=== PATIENT | male | born 1960 | race Caucasian/White ===

== ENCOUNTER 2017-01-18 18:24 | Inpatient (IN) | payer OTHER, MEDICARE ==
[~2017-01-18] VITALS: Ht 188 cm; Wt 146.0 kg
[~2017-01-18 18:24] MED LIST: ALBU6.7H INH; ATOR40TA16 PO; CARV25TA PO; FURO40TA PO; HYDR-3580 PO; INSU1INJ14 SQ; METF500T4 PO; PLAV75TA29 PO; PROT40TA PO; SACU1TAB PO; SIMV20TA PO; SPIR25TA PO
[2017-01-18 18:40] VITALS: BP 124/77; PULSE 87; RESP 18; TEMP 97.8; O2SAT 96
--- NOTE | 2017-01-18 20:55 | PD ---
HPI Chief Complaint: Laceration/Skin Injury Time Seen by Provider: 20:43 Travel History International Travel<30 days: No Contact w/Intl Traveler<30days: No Traveled to known affect area: No History of Present Illness HPI 56yo M with PMH of afib on eliquis, DM, neuropathy presents to the ED with left toe laceration. Pt states he was in his yard yesterday at 10:30pm and he tripped over something and cut his left fourth toe. States it took a while for bleeding to stop but it did and he was not feeling too much pain so did not come in. Pt looked at it today and it looks bad so decided to come in. Did not take anything for pain. Cant remember last tetanus. Denies any dizziness, fever, chest pain, sob, n/v, abdominal pain, focal weakness or numbness. PFSH Past Medical History Hx Anticoagulant Therapy: No Arthritis: No Asthma: No Autoimmune Disease: No Blood Disorders: No Anxiety: Yes Depression: Yes Heart Rhythm Problems: No Cancer: Yes (CHEEK) Cardiovascular Problems: Yes (LA X 4, STENT, PACEMAKER, DEFIB ) High Cholesterol: Yes Chemotherapy: No Chest Pain: Yes Congestive Heart Failure: Yes COPD: No Cerebrovascular Accident: No Coronary Artery Disease: Yes Diabetes: Yes Patient Takes Glucophage: No Diminished Hearing: No Endocrine: Yes Gastrointestinal Disorders: No GERD: No Glaucoma: No Genitourinary: No Headaches: No Hepatitis: No Hiatal Hernia: No Hypertension: Yes Immune Disorder: No Implanted Vascular Access Dvce: No Kidney Stones: No Musculoskeletal: No Neurologic: No Psychiatric: No Reproductive: No Respiratory: No Immunizations Current: Yes Myocardial Infarction: Yes (X 01 July 2005) Radiation Therapy: No Renal Failure: No Seizures: No Sickle Cell Disease: No Sleep Apnea: No Thyroid Disease: No Ulcer: No Tetanus Vaccination: > 5 Years Influenza Vaccination: No Past Surgical History Abdominal Surgery: No AICD: No Body Medical Devices: AICD Cardiac Surgery: Yes (AICD) Coronary Stent: Yes (X4) Ear Surgery: No Endocrine Surgery: No Eye Surgery: No Genitourinary Surgery: No Gynecologic Surgery: No Oral Surgery: Yes (TONSILLECTOMY) Pacemaker: No Thoracic Surgery: Yes (STENTS X3 in 2005) Tonsillectomy: Yes Social History Alcohol Use: Yes (OCCASIONALLY) Tobacco Use: No Substance Use: No Allergies-Medications (Allergen,Severity, Reaction): Coded Allergies: penicillin G (Unverified Allergy, Severe, unknown childhood rxn, 01/18/17) Reported Meds & Prescriptions Reported Meds & Active Scripts Active Reported Carvedilol 25 Mg Tab 25 Mg PO BID Furosemide 40 Mg Tab 40 Mg PO BID Spironolactone 25 Mg Tab 25 Mg PO TID Tresiba Flextouch Pen Inj (Insulin Degludec Inj) 300 unit/3 ML Pen 30 Units SQ DAILY Entresto (Sacubitril-Valsartan) 24-26 Mg Tab 1 Tab PO BID Plavix (Clopidogrel Bisulfate) 75 Mg Tab 75 Mg PO DAILY Proventil Hfa 6.7 GM Inh (Albuterol Sulfate) 90 Mcg/Act Aer 2 Puff INH BID PRN Simvastatin 20 Mg Tab 20 Mg PO HS Metformin ER (Metformin HCl) 500 Mg Ashlyn 500 Mg PO BID With evening meal Review of Systems Except as stated in HPI: all other systems reviewed are Neg Physical Exam Narrative GENERAL: 56yo M not in distress. SKIN: Focused skin assessment warm/dry. HEAD: Atraumatic. Normocephalic. EYES: Pupils equal and round. No scleral icterus. No injection or drainage. CARDIOVASCULAR: Regular rate and rhythm. No murmur appreciated. RESPIRATORY: No accessory muscle use. Clear to auscultation. Breath sounds equal bilaterally. GASTROINTESTINAL: Abdomen soft, non-tender, nondistended. No rebound tenderness or guarding. MUSCULOSKELETAL: Left foot: +3cm laceration on volar aspect of left fourth digit. Can visualize the bone and interphalangeal joint easily dislocates and relocates. DP 2+. Sensation intact. No active bleeding. NEUROLOGICAL: Awake and alert. No obvious cranial nerve deficits. Motor grossly within normal limits. Normal speech. PSYCHIATRIC: Appropriate mood and affect; insight and judgment normal. Data Data Last Documented VS Vital Signs Date Time Temp Pulse Resp B/P (MAP) Pulse Ox O2 Delivery O2 Flow Rate FiO2 01/18/17 18:40 97.8 87 18 124/77 (93) 96 Room Air Orders Orders Foot, Limited (2vws) (01/18/17 ) Tetanus/Diphtheria Tox Adult (Tetanus/Di (01/18/17 21:00) Acetaminophen (Tylenol) (01/18/17 21:00) Lidocaine 1% Inj (50 Ml) (Xylocaine 1% I (01/18/17 21:45) Complete Blood Count With Diff (01/18/17 23:29) Basic Metabolic Panel (Bmp) (01/18/17 23:29) Prothrombin Time / Inr (Pt) (01/18/17 23:29) Act Partial Throm Time (Ptt) (01/18/17 23:29) Vancomycin Inj (Vancomycin Inj) (01/18/17 23:30) Type And Screen (01/18/17 23:34) Consult Podiatry (01/19/17 ) Ondansetron Inj (Zofran Inj) (01/19/17 01:00) Morphine Inj (Morphine Inj) (01/19/17 01:00) Gentamicin Inj (Gentamicin Inj) (01/19/17 01:00) Admit Order (Ed Use Only) (01/19/17 01:32) Labs Laboratory Tests Test 01/18/17 23:40 White Blood Count 9.5 TH/MM3 Red Blood Count 4.20 MIL/MM3 Hemoglobin 13.7 GM/DL Hematocrit 40.3 % Mean Corpuscular Volume 95.9 FL Mean Corpuscular Hemoglobin 32.6 PG Mean Corpuscular Hemoglobin Concent 34.0 % Red Cell Distribution Width 14.2 % Platelet Count 194 TH/MM3 Mean Platelet Volume 9.1 FL Neutrophils (%) (Auto) 50.4 % Lymphocytes (%) (Auto) 35.6 % Monocytes (%) (Auto) 10.3 % Eosinophils (%) (Auto) 3.2 % Basophils (%) (Auto) 0.5 % Neutrophils # (Auto) 4.8 TH/MM3 Lymphocytes # (Auto) 3.4 TH/MM3 Monocytes # (Auto) 1.0 TH/MM3 Eosinophils # (Auto) 0.3 TH/MM3 Basophils # (Auto) 0.0 TH/MM3 CBC Comment DIFF FINAL Differential Comment Prothrombin Time 11.2 SEC Prothromb Time International Ratio 1.0 RATIO Activated Partial Thromboplast Time 26.6 SEC Blood Urea Nitrogen 30 MG/DL Creatinine 1.28 MG/DL Random Glucose 144 MG/DL Calcium Level 8.9 MG/DL Sodium Level 137 MEQ/L Potassium Level 4.0 MEQ/L Chloride Level 102 MEQ/L Carbon Dioxide Level 28.0 MEQ/L Anion Gap 7 MEQ/L Estimat Glomerular Filtration Rate 58 ML/MIN MDM Medical Decision Making Medical Screen Exam Complete: Yes Emergency Medical Condition: Yes Differential Diagnosis Open fracture vs. dislocation vs. foreign body Narrative Course 56yo M with left fourth toe laceration s/p trip and fall on tree yesterday at 10pm. No other injuries. Upon exploration of the wound, it was found that bone was exposed and the joint easily dislocates and relocates. Discussed with residential green building designer Dr. Abrams and she states to keep pt NPO after breakfast today and she plans to take him to the OR today probably around 5pm. Labs reviewed, no leukocytosis. BMP is not back yet and sign out to PA to follow up and admit to medicine. Pt given vancomycin and gentamicin. Xray of left foot showed no acute findings. No radiopaque foreign body. Left foot wound irrigated well and wet to dry dressing placed. Diagnosis Primary Impression: Open fracture of fourth metatarsal bone of left foot Admitting Information Admitting Physician Requests: Admit Colette Floyd DO Jan 18, 2017 20:55
[2017-01-18] MEDS ORDERED: TETANUS/DIPHTHERIA TOXOID ADULT 0.5 ML VIAL IM ONE (21:00)
[2017-01-18] MEDS ORDERED: ACETAMINOPHEN 500 MG CPLT PO ONE (21:00)
--- NOTE | 2017-01-18 21:18 | RADRPT ---
EXAM DATE/TIME: 01/18/2017 20:46 [facility] COMPARISON: No previous studies available for comparison. INDICATIONS : Left foot pain. Patient states he cut his foot between his first and second digit. MEDICAL HISTORY : None. SURGICAL HISTORY : None. ENCOUNTER: Initial ACUITY: 2 days PAIN SCORE: 8/10 LOCATION: Left foot. FINDINGS: Two view examination of the left foot demonstrates no soft tissue swelling, dislocation, or fracture. The calcaneus is intact. Bony mineralization is normal. CONCLUSION: 1. No acute findings. Mild degenerative change of the left foot. No radiopaque foreign body identifie d. Polo Morse MD on January 18, 2017 at 21:16 Board Certified Radiologist. This report was verified electronically.
[2017-01-18] MEDS ORDERED: LIDOCAINE HCL 1% 50 ML VIAL INFIL ONE (21:45)
[2017-01-18] MEDS ORDERED: VANCOMYCIN INJ 2,100 MG in SODIUM CHLORID 0.9% 500 ML INJ 500 ML IV ONE (23:30)
--- NOTE | 2017-01-18 23:39 | PD ---
Physical Exam Date Seen by Provider: Jan 18, 2017 Time Seen by Provider: 23:38 Narrative Right foot: There is a laceration to the volar proximal aspect of the fourth toe. The wound measures approximately 1.7 cm. The wound is contaminated with dirt debris. On examination of the toe it appears that the PIP joint is open. Patient hasn't tach gross sensation. (Polo Crook) Narrative Correction: It is the left foot that was examined. (Colette Floyd DO) Data Data Last Documented VS Vital Signs Date Time Temp Pulse Resp B/P (MAP) Pulse Ox O2 Delivery O2 Flow Rate FiO2 01/18/17 18:40 97.8 87 18 124/77 (93) 96 Room Air (Colette Floyd DO) Orders Orders Foot, Limited (2vws) (01/18/17 ) Tetanus/Diphtheria Tox Adult (Tetanus/Di (01/18/17 21:00) Acetaminophen (Tylenol) (01/18/17 21:00) Lidocaine 1% Inj (50 Ml) (Xylocaine 1% I (01/18/17 21:45) Complete Blood Count With Diff (01/18/17 23:29) Basic Metabolic Panel (Bmp) (01/18/17 23:29) Prothrombin Time / Inr (Pt) (01/18/17 23:29) Act Partial Throm Time (Ptt) (01/18/17 23:29) Vancomycin Inj (Vancomycin Inj) (01/18/17 23:30) Type And Screen (01/18/17 23:34) Consult Podiatry (01/19/17 ) Ondansetron Inj (Zofran Inj) (01/19/17 01:00) Morphine Inj (Morphine Inj) (01/19/17 01:00) Gentamicin Inj (Gentamicin Inj) (01/19/17 01:00) Admit Order (Ed Use Only) (01/19/17 01:32) (Colette Floyd DO) Labs Laboratory Tests Test 01/18/17 23:40 White Blood Count 9.5 TH/MM3 Red Blood Count 4.20 MIL/MM3 Hemoglobin 13.7 GM/DL Hematocrit 40.3 % Mean Corpuscular Volume 95.9 FL Mean Corpuscular Hemoglobin 32.6 PG Mean Corpuscular Hemoglobin Concent 34.0 % Red Cell Distribution Width 14.2 % Platelet Count 194 TH/MM3 Mean Platelet Volume 9.1 FL Neutrophils (%) (Auto) 50.4 % Lymphocytes (%) (Auto) 35.6 % Monocytes (%) (Auto) 10.3 % Eosinophils (%) (Auto) 3.2 % Basophils (%) (Auto) 0.5 % Neutrophils # (Auto) 4.8 TH/MM3 Lymphocytes # (Auto) 3.4 TH/MM3 Monocytes # (Auto) 1.0 TH/MM3 Eosinophils # (Auto) 0.3 TH/MM3 Basophils # (Auto) 0.0 TH/MM3 CBC Comment DIFF FINAL Differential Comment Prothrombin Time 11.2 SEC Prothromb Time International Ratio 1.0 RATIO Activated Partial Thromboplast Time 26.6 SEC Blood Urea Nitrogen 30 MG/DL Creatinine 1.28 MG/DL Random Glucose 144 MG/DL Calcium Level 8.9 MG/DL Sodium Level 137 MEQ/L Potassium Level 4.0 MEQ/L Chloride Level 102 MEQ/L Carbon Dioxide Level 28.0 MEQ/L Anion Gap 7 MEQ/L Estimat Glomerular Filtration Rate 58 ML/MIN (Colette Floyd DO) MDM Medical Record Reviewed: Yes Supervised Visit with JUDAH: Yes Differential Diagnosis MDM: High Differential diagnoses: Fracture, sprain, strain, dislocation, contusion, neurovascular injury, open joint laceration, open fracture Narrative Course The patient's wound has been copiously irrigated. A wet-to-dry dressing has been applied. Patient is aware that he ate appears to have an avulsion fracture with an open PIP joint of the right fourth toe. Podiatry has been consulted and is requesting admission and will evaluate the patient tomorrow for possible or. (Polo Crook) Procedures Procedure Narrative Right fourth toe wound care: The right foot is prepped and draped in usual sterile fashion using Betadine. The patient's toe was anesthetized with 1% lidocaine block. The wound appears to be contaminated with dirt debris. The wound is copiously cleansed and irrigated. Exploration of the wound reveals a open dislocation of the PIP joint of the toe. This is reducible but easily dislocates. The wound is reexamined. The dirt debris appears to be cleared away. The wound is irrigated copiously and second time. The dislocation is reduced once again and a wet-to-dry dressing is applied. (Polo Crook) Condition: Stable Polo Crook Jan 18, 2017 23:39 Colette Floyd DO Jan 19, 2017 16:37
[2017-01-19] VITALS (7 sets, daily range): BP systolic 111–142; BP diastolic 60–82; PULSE 69–94; RESP 14–19; TEMP 97–100; O2SAT 96–98
[2017-01-19 00:24] LABS: AUTOMATED NEUTROPHIL # 4.8 TH/MM3 (1.8-7.7); BASOPHIL % 0.5 % (0.0-2.0); EOSINOPHIL # 0.3 TH/MM3 (0-0.4); EOSINOPHIL % 3.2 % (0.0-4.0); HEMATOCRIT 40.3 % (39.0-51.0); HEMO FLAGS DIFF FINAL; LYMPH % 35.6 % (9.0-44.0); LYMPHOCYTE # 3.4 TH/MM3 (1.0-4.8); MEAN CELL VOLUME 95.9 FL (80.0-100.0); MEAN CORPUSCULAR HEMOGLOBIN 32.6 PG (27.0-34.0); MONO % 10.3 % (0.0-8.0); NEUT % 50.4 % (16.0-70.0); PLATELET COUNT 194 TH/MM3 (150-450); RED CELL DISTRIBUTION WIDTH 14.2 % (11.6-17.2); WHITE BLOOD COUNT 9.5 TH/MM3 (4.0-11.0)
[2017-01-19 00:37] LABS: APTT (PATIENT) 26.6 SEC (24.3-30.1); PROTHROMBIN TIME - PATIENT 11.2 SEC (9.8-11.6)
[2017-01-19] MEDS ORDERED: MORPHINE SULFATE 8 MG/ML INJ IV PUSH ONE (01:00)
[2017-01-19] MEDS ORDERED: GENTAMICIN SULFATE 80 MG/2 ML VIAL IM ONE (01:00)
[2017-01-19] MEDS ORDERED: ONDANSETRON HCL 4 MG/2 ML VIAL IV PUSH ONE ×2 (01:00→12:00)
[2017-01-19] MEDS ORDERED: GENTAMICIN SULFATE 80 MG/2 ML VIAL IV ONE (01:15)
[2017-01-19] MEDS ORDERED: NALOXONE HCL 0.4 MG/ML AMP IV PRN (01:45)
[2017-01-19] MEDS ORDERED: SODIUM CHLORIDE 0.9% FLUSH 10 ML FLUSH IV FLUSH PRN (01:45)
[2017-01-19] MEDS ORDERED: Vancomycin Consult Pharmacy 1 EA OTHER SCH (01:45)
[2017-01-19] MEDS ORDERED: Gentamicin Consult Pharmacy 1 EA OTHER SCH (01:45)
[2017-01-19] MEDS ORDERED: GENTAMICIN INJ 100 MG in SODIUM CHLORIDE 0.9% INJ 100 ML IV ONE (02:00)
[2017-01-19] MEDS ORDERED: LACTATED RINGER'S 1000 ML IV PRN ×2 (04:15→20:30)
[2017-01-19] MEDS ORDERED: SODIUM CHLORID 0.9% 500 ML IV PRN ×2 (04:15→20:30)
[2017-01-19] MEDS ORDERED: POVIDONE IODINE 5% (ANTISEPSIS KIT) 4 APPLICATIONS EACH NARE PRN ×2 (04:15→20:30)
[2017-01-19] MEDS ORDERED: CHLORHEXIDINE GLUCONATE 2 % 1 PACK (2 CLOTHS) TOPICAL PRN ×2 (04:15→20:30)
[2017-01-19] MEDS ORDERED: INSULIN HUMAN REGULAR 1,000 UNITS/10 ML VIAL SQ PRN ×2 (04:15→20:30)
[2017-01-19] MEDS ORDERED: METOPROLOL TARTRATE 25 MG TAB PO PRN (04:15)
[2017-01-19] MEDS ORDERED: DEXTROSE 50% IN WATER 50 ML VIAL(D50) IV PRN (08:45)
[2017-01-19] MEDS ORDERED: GLUCAGON 1 MG/ML VIAL OTHER PRN (08:45)
[2017-01-19] MEDS: FUROSEMIDE 40 MG TAB PO SCH ×3 (09:00→20:25)
[2017-01-19] MEDS: SPIRONOLACTONE 25 MG TAB PO SCH ×5 (09:00→20:25)
[2017-01-19] MEDS ORDERED: ACETAMINOPHEN/HYDROcodone 325 MG/5 MG TAB PO PRN (09:00)
--- NOTE | 2017-01-19 09:02 | RADRPT ---
EXAM DATE/TIME: 01/19/2017 08:40 [facility] COMPARISON: FOOT LEFT LIMITED (2VWS), January 18, 2017, 20:46. INDICATIONS : Left ankle pain, fell MEDICAL HISTORY : None. SURGICAL HISTORY : None. ENCOUNTER: Initial ACUITY: 2 days PAIN SCORE: 8/10 LOCATION: Left Ankle FINDINGS: The examination demonstrates extensive soft tissue edema surrounding ankle. The ankle mortise is inta ct. No acute fracture or retained foreign body is seen. CONCLUSION: Extensive soft tissue swelling. No acute fracture identified. Maximino Loving MD on January 19, 2017 at 9:00 Board Certified Radiologist. This report was verified electronically.
--- NOTE | 2017-01-19 09:16 | HHI.HP ---
HPI Service [facility] Primary Care Physician Wendi Sarabia DO Admission Diagnosis right fourth toe open fx joint laceration Diagnoses: Chief Complaint: Left 4th toe laceration Travel History International Travel<30 Days: No Contact w/Intl Traveler <30 Da: No Traveled to Known Affected Are: No History of Present Illness 56 y/o male with a history of afib, dm, neuropathy, CAD, [place], HLD, and CHF (Last echo 04/2016 shows EF of 35%), AICD presented to the ED with complaints of a left 4th toe laceration. Patient states he tripped over an oak tree root on the side of his house 2 days ago at night. He is not sure what he stepped on because it was dark, but he cleaned it and the next day he had increased pain and redness to the area. He states the pain is a throbbing 10/10 to the left foot, with associated left ankle pain. He was given pain medication in the ED which seemed to help, but has had none since and is requesting some. He denies any chest pain, sob, fever, chills, nausea, vomiting or headaches. He states he follows with Dr. Vincent for cardiology, and was always told to get clearance for any surgery. His pacemaker did fire 10 days ago and he was evaluated by his floor worker transfer bay and PCP. Review of Systems Except as stated in HPI: all other systems reviewed are Neg Past Family Social History Past Medical History AFIB DM Neuropathy [place] with stent placement HLD CHF EF 04/2016 shows EF 35% CAD Past Surgical History Tonsillectomy Cardiac stents x 3 Pacemaker/AICD Reported Medications Reported Meds & Active Scripts Active Reported Carvedilol 25 Mg Tab 25 Mg PO BID Furosemide 40 Mg Tab 40 Mg PO BID Spironolactone 25 Mg Tab 25 Mg PO TID Tresiba Flextouch Pen Inj (Insulin Degludec Inj) 300 unit/3 ML Pen 30 Units SQ DAILY Entresto (Sacubitril-Valsartan) 24-26 Mg Tab 1 Tab PO BID Plavix (Clopidogrel Bisulfate) 75 Mg Tab 75 Mg PO DAILY Proventil Hfa 6.7 GM Inh (Albuterol Sulfate) 90 Mcg/Act Aer 2 Puff INH BID PRN Simvastatin 20 Mg Tab 20 Mg PO HS Metformin ER (Metformin HCl) 500 Mg Ashlyn 500 Mg PO BID With evening meal Allergies: Coded Allergies: penicillin G (Unverified Allergy, Severe, unknown childhood rxn, 01/18/17) Active Ordered Medications Current Medications Medications (Trade) Dose Ordered Sig/Edwina Route Start Time Stop Time Status Last Admin (NS Flush) 2 ml UNSCH PRN IV FLUSH 01/19/17 01:45 (NS Flush) 2 ml BID IV FLUSH 01/19/17 09:00 (Narcan Inj) 0.4 mg UNSCH PRN IV 01/19/17 01:45 Pharmacy Profile Note 0 ml @ 0 mls/hr UNSCH OTHER 01/19/17 01:45 Pharmacy Profile Note 0 ml @ 0 mls/hr UNSCH OTHER 01/19/17 01:45 Lactated Ringer's 1,000 ml @ 30 mls/hr Q24H PRN IV 01/19/17 04:15 01/22/17 04:14 Sodium Chloride 500 ml @ 30 mls/hr [id number] PRN IV 01/19/17 04:15 01/22/17 04:14 (Lopressor) 25 mg INVENTORY AUDIT CLERK PRN PO 01/19/17 04:15 01/22/17 04:14 (Betadine 5% Antisepsis Kit) 1 applic INVENTORY AUDIT CLERK PRN EACH NARE 01/19/17 04:15 01/22/17 04:14 (Chlorhexidine 2% Cloth) 3 pack INVENTORY AUDIT CLERK PRN TOPICAL 01/19/17 04:15 01/22/17 04:14 (NovoLIN R INJ) See Protocol Table ... INVENTORY AUDIT CLERK PRN SQ 01/19/17 04:15 01/22/17 04:14 (Proair Hfa Inh) 2 puff BID PRN INH 01/19/17 08:45 UNV (Coreg) 25 mg BID PO 01/19/17 09:00 UNV (Plavix) 75 mg DAILY PO 01/19/17 09:00 UNV (Lasix) 40 mg BID PO 01/19/17 09:00 UNV (Entresto 24-26 Mg) 1 tab BID PO 01/19/17 09:00 UNV (Aldactone) 25 mg TID PO 01/19/17 09:00 UNV Non-Formulary Medication 20 mg HS PO 01/19/17 21:00 UNV (D50w (Vial) Inj) 50 ml UNSCH PRN IV 01/19/17 08:45 UNV (Glucagon Inj) 1 mg UNSCH PRN OTHER 01/19/17 08:45 UNV Gentamicin Sulfate 520 mg/ Sodium Chloride 113 ml @ 100 mls/hr Q24H IV 01/19/17 12:00 Family History Dad: Alive at 85, [place] Mom: Alive and has Alzheimer's Social History Tobacco use: Quit a few months ago Alcohol use: Occasionally Illicit drug use: Denies Physical Exam Vital Signs Vital Signs Date Time Temp Pulse Resp B/P (MAP) Pulse Ox O2 Delivery O2 Flow Rate FiO2 01/19/17 04:00 97.1 69 18 117/73 (88) 97 01/19/17 03:35 01/19/17 03:12 98.1 71 14 115/61 (79) 96 Room Air 01/18/17 18:40 97.8 87 18 124/77 (93) 96 Room Air Physical Exam GENERAL: This is a well-nourished, well-developed patient,who is having mild pain. SKIN: Left 4th toe laceration, with erythema, wrapped in gauze, slight left ankle ecchymosis HEAD: Atraumatic. Normocephalic. EYES: Pupils equal round and reactive. ENT: Nose without bleeding, purulent drainage or septal hematoma. Airway patent. NECK: Trachea midline. No JVD or lymphadenopathy. CARDIOVASCULAR: Regular rate and rhythm without murmurs, gallops, or rubs. RESPIRATORY: Clear to auscultation. Breath sounds equal bilaterally. No wheezes , rales, or rhonchi. GASTROINTESTINAL: Abdomen soft, non-tender, nondistended. No guarding. MUSCULOSKELETAL: Left foot tenderness. No calf tenderness. Mild left ankle swelling NEUROLOGICAL: Awake and alert. Motor and sensory grossly within normal limits. Normal speech. Laboratory Laboratory Tests Test 01/18/17 23:40 White Blood Count 9.5 Red Blood Count 4.20 Hemoglobin 13.7 Hematocrit 40.3 Mean Corpuscular Volume 95.9 Mean Corpuscular Hemoglobin 32.6 Mean Corpuscular Hemoglobin Concent 34.0 Red Cell Distribution Width 14.2 Platelet Count 194 Mean Platelet Volume 9.1 Neutrophils (%) (Auto) 50.4 Lymphocytes (%) (Auto) 35.6 Monocytes (%) (Auto) 10.3 Eosinophils (%) (Auto) 3.2 Basophils (%) (Auto) 0.5 Neutrophils # (Auto) 4.8 Lymphocytes # (Auto) 3.4 Monocytes # (Auto) 1.0 Eosinophils # (Auto) 0.3 Basophils # (Auto) 0.0 CBC Comment DIFF FINAL Differential Comment Prothrombin Time 11.2 Prothromb Time International Ratio 1.0 Activated Partial Thromboplast Time 26.6 Blood Urea Nitrogen 30 Creatinine 1.28 Random Glucose 144 Calcium Level 8.9 Sodium Level 137 Potassium Level 4.0 Chloride Level 102 Carbon Dioxide Level 28.0 Anion Gap 7 Estimat Glomerular Filtration Rate 58 Result Diagram: 01/18/17 2340 01/18/17 2340 Imaging Last Impressions Foot X-Ray 01/18/17 0000 Signed Impressions: Service Date/Time: Wednesday, January 18, 2017 20:46 - CONCLUSION: 1. No acute findings. Mild degenerative change of the left foot. No radiopaque foreign body identified. Polo Morse MD Caprini VTE Risk Assessment Caprini VTE Risk Assessment: Mod/High Risk (score >= 2) VTE Pharm Contraindication: surgery pending Caprini Risk Assessment Model Point Value = 1 Point Value = 2 Point Value = 3 Point Value = 5 Age 41-60 Minor surgery BMI > 25 kg/m2 Swollen legs Varicose veins or History of unexplained or recurrent spontaneous Oral contraceptives or hormone replacement Sepsis (< 1 month) Serious lung disease, including pneumonia (< 1 month) Abnormal pulmonary function Acute myocardial infarction Congestive heart failure (< 1 month) History of inflammatory bowel disease Medical patient at bed rest Age 61-74 Arthroscopic surgery Major open surgery (> 45 min) Laparoscopic surgery (> 45 min) Malignancy Confined to bed (> 72 hours) Immobilizing plaster cast Central venous access Age >= 75 History of VTE Family history of VTE Factor V Leiden Prothrombin [id number] Lupus anticoagulant Anticardiolipin antibodies Elevated serum homocysteine Heparin-induced thrombocytopenia Other congenital or acquired thrombophilia Stroke (< 1 month) Elective arthroplasty Hip, pelvis, or leg fracture Acute spinal cord injury (< 1 month) Prophylaxis Regimen Total Risk Factor Score Risk Level Prophylaxis Regimen 0-1 Low Early ambulation 2 Moderate Order ONE of the following: *Sequential Compression Device (SCD) *Heparin 5000 units SQ BID 3-4 Higher Order ONE of the following medications: *Heparin 5000 units SQ TID *Enoxaparin/Lovenox 40 mg SQ daily (WT < 150 kg, CrCl > 30 mL/min) *Enoxaparin/Lovenox 30 mg SQ daily (WT < 150 kg, CrCl > 10-29 mL/min) *Enoxaparin/Lovenox 30 mg SQ BID (WT < 150 kg, CrCl > 30 mL/min) AND/OR *Sequential Compression Device (SCD) 5 or more Highest Order ONE of the following medications: *Heparin 5000 units SQ TID (Preferred with Epidurals) *Enoxaparin/Lovenox 40 mg SQ daily (WT < 150 kg, CrCl > 30 mL/min) *Enoxaparin/Lovenox 30 mg SQ daily (WT < 150 kg, CrCl > 10-29 mL/min) *Enoxaparin/Lovenox 30 mg SQ BID (WT < 150 kg, CrCl > 30 mL/min) AND *Sequential Compression Device (SCD) Assessment and Plan Problem List: (1) Open fracture of fourth metatarsal bone of left foot ICD Code: S92.342B - Displaced fracture of fourth metatarsal bone, left foot, initial encounter for open fracture Status: Acute (2) Left ankle pain ICD Code: M25.572 - Pain in left ankle and joints of left foot Status: Acute (3) Diabetes ICD Code: E11.9 - Type 2 diabetes mellitus without complications Status: Chronic (4) Afib ICD Code: I48.91 - Unspecified atrial fibrillation Status: Chronic Assessment and Plan 56 y/o male with a history of afib, dm, neuropathy, CAD, [place], HLD, and CHF (Last echo 04/2016 shows EF of 35%), AICD presented to the ED with complaints of a left 4th toe laceration. Open Fracture of left 4th metatarsal, acute Lt foot x ray reviewed and shows: -Pain management with IV morphine and PO [place] -Consult podiatry for recommendation, possible surgery today, Dr. Johnson -Gentle IVF for hydration D5NS patient is Diabetic and NPO -Antibiotics IV Vancomycin and gentamicin, pharmacy to dose Left ankle pain, acute Ankle x-ray ordered and reviewed shows extensive soft tissue edema surrounding ankle, no acute fx noted. -Ice as needed, 15 mins at a time, and elevate -Pain management as above Afib, chronic, s/p pacemaker/AICD EKG reviewed and shows a paced rhythm -Cardiology consulted for cardiac clearance for surgery, Dr Vincent -Monitor telemetry -Restart home medications Diabetes, chronic on home insulin -Hold home medication due to surgery -Npo, resume diabetic diet post surgery -Accu checks AC/HS ordered DVT prophylaxis: hold chemical due to surgery, SCDs on Right lower extremity, Teds bilateral Attestation Patient seen and examined with THOMPSON Vaca The exam, history, and the medical decision-making described in the above note were completed with the assistance of the dictating practitioner. I attest that I had a [id number] encounter with the patient on the same day, and personally performed all of the history, exam, or medical decision making. Discussed case with her thoroughly after seeing the patient, reviewed and agreed with the plan. Please see addendum in History, Physical examination. See below for any errata/additional input: This is a 56-year-old male with history of atrial fibrillation, diabetes, cardiomyopathy, coronary artery disease, allegedly last echocardiogram with ejection fraction of 40% about 3 years ago admitted after sustaining a 40 left toe laceration after tripping over an open treatment. Patient denies any chest pain, shortness of breath, dizziness, lightheadedness or syncopal episode. Patient currently nonsmoker, no significant alcohol use. Not in distress Regular rate and rhythm Clear breath sounds Left foot dressings in place Open Fracture of left 4th metatarsal, acute with laceration-podiatry consulted, continue antibiotics, pain control, increased [place] to Percocet. Consult cardiology for clearance prior to surgery, EKG showed paced rhythm. Continue home medications except oral hypoglycemic agents, sliding scale insulin for now Discussed Condition With Patient and RN Physician Certification 2 Midnight Certification Type: Admission for Inpatient Services Order for Inpatient Services The services are ordered in accordance with Medicare regulations or non- Medicare payer requirements, as applicable. In the case of services not specified as inpatient-only, they are appropriately provided as inpatient services in accordance with the 2-midnight benchmark. Estimated LOS (days): 2 days is the estimated time the patient will need to remain in the hospital, assuming treatment plan goals are met and no additional complications. Post-Hospital Plan: Home Problem Qualifiers (1) Open fracture of fourth metatarsal bone of left foot: (2) Left ankle pain: Qualified Codes: M25.572 - Pain in left ankle and joints of left foot (3) Diabetes: Qualified Codes: E11.9 - Type 2 diabetes mellitus without complications; Z79.4 - exterminator (current) use of insulin (4) Afib: Qualified Codes: I48.2 - Chronic atrial fibrillation Arely Dillon Jan 19, 2017 09:16 Dimitrios Solomon MD Jan 19, 2017 15:42
[2017-01-19] MEDS: CLOPIDOGREL 75 MG TAB PO SCH (09:19)
[2017-01-19] MEDS: CARVEDILOL 12.5 MG TAB PO SCH ×2 (09:23→20:26)
[2017-01-19] MEDS: SACUBITRIL/VALSARTAN 24 MG-26 MG TAB PO SCH ×2 (09:24→20:26)
[2017-01-19] MEDS: SODIUM CHLORIDE 0.9% FLUSH 10 ML FLUSH IV FLUSH SCH ×2 (09:24→20:26)
[2017-01-19] MEDS: DEXT 5%-NACL 0.9% 1000 ML INJ 1,000 ML IV SCH (09:38)
[2017-01-19] MEDS ORDERED: ALBUTEROL SULFATE 90 MCG/ACT HFA 8 GM INHALER INH PRN (10:00)
--- NOTE | 2017-01-19 11:08 | EKG ---
Date Performed: 01/19/2017 Time Performed: 05:30:24 PTAGE: 56 years EKG: Ventricular pacing. Pacemaker rhythm - no further analysis Abnormal ECG PREVIOUS TRACING : 04/28/2016 19.26 Compared to previous tracing, rhythm now 100% paced, underl manjit atrial fibrillation is no longer evident. DOCTOR: Compa Otto Interpretating Date/Time 01/19/2017 11:07:04
[2017-01-19] MEDS ORDERED: PROPOFOL 200 MG/20 ML AMP IV ONE (12:00)
[2017-01-19] MEDS ORDERED: ePHEDrine/NS 25 MG/5 ML SYR IV ONE (12:00)
[2017-01-19] MEDS: SODIUM CHLORIDE 0.9% IV SCH (13:22)
[2017-01-19] MEDS: GENTAMICIN IV SCH (13:22)
[2017-01-19] MEDS: MORPHINE SULFATE 4 MG/ML INJ IV PUSH PRN (13:27)
[2017-01-19] MEDS: VANCOMYCIN INJ 1,500 MG in SODIUM CHLORID 0.9% 500 ML INJ 500 ML IV SCH (16:23)
[2017-01-19] MEDS ORDERED: BUPIVACAINE HCL PF 0.25% 30 ML VIAL ONE (16:58)
[2017-01-19] MEDS ORDERED: KETAMINE HCL 500 MG/5 ML VIAL ONE (17:59)
--- NOTE | 2017-01-19 18:13 | PD.CONS ---
History of Present Illness Service Podiatry Consult Requested By ED Reason for Consult L 4th toe open joint Primary Care Physician Wendi Sarabia DO Diagnoses: History of Present Illness 56 y/o male with a history of afib, dm, neuropathy, CAD, [place], HLD, and CHF (Last echo 04/2016 shows EF of 35%), AICD presented to the ED with complaints of a left 4th toe laceration. Patient states he thinks he tripped over an oak tree root on the side of his house 2 days ago at night. He is not sure what he stepped on because it was dark, but he cleaned it and the next day he had increased pain and redness to the area. He states the pain is a throbbing pain to L toes. Past Family Social History Allergies: Coded Allergies: penicillin G (Unverified Allergy, Severe, unknown childhood rxn, 01/18/17) Past Medical History AFIB DM Neuropathy [place] with stent placement HLD CHF EF 04/2016 shows EF 35% CAD Past Surgical History Tonsillectomy Cardiac stents x 3 Pacemaker/AICD Active Ordered Medications Current Medications Medications (Trade) Dose Ordered Sig/Edwina Route Start Time Stop Time Status Last Admin (NS Flush) 2 ml UNSCH PRN IV FLUSH 01/19/17 01:45 (NS Flush) 2 ml BID IV FLUSH 01/19/17 09:00 01/19/17 09:24 (Narcan Inj) 0.4 mg UNSCH PRN IV 01/19/17 01:45 Pharmacy Profile Note 0 ml @ 0 mls/hr UNSCH OTHER 01/19/17 01:45 Pharmacy Profile Note 0 ml @ 0 mls/hr UNSCH OTHER 01/19/17 01:45 Lactated Ringer's 1,000 ml @ 30 mls/hr Q24H PRN IV 01/19/17 04:15 01/22/17 04:14 Sodium Chloride 500 ml @ 30 mls/hr [id number] PRN IV 01/19/17 04:15 01/22/17 04:14 (Lopressor) 25 mg EMERGENCY DOCTOR PRN PO 01/19/17 04:15 01/22/17 04:14 (Betadine 5% Antisepsis Kit) 1 applic EMERGENCY DOCTOR PRN EACH NARE 01/19/17 04:15 01/22/17 04:14 (Chlorhexidine 2% Cloth) 3 pack EMERGENCY DOCTOR PRN TOPICAL 01/19/17 04:15 01/22/17 04:14 (NovoLIN R INJ) See Protocol Table ... EMERGENCY DOCTOR PRN SQ 01/19/17 04:15 01/22/17 04:14 (Proair Hfa Inh) 2 puff BID PRN INH 01/19/17 10:00 (Coreg) 25 mg BID PO 01/19/17 09:00 01/19/17 09:23 (Plavix) 75 mg DAILY PO 01/19/17 09:00 01/19/17 09:19 (Lasix) 40 mg BID PO 01/19/17 09:00 01/19/17 09:32 (Entresto 24-26 Mg) 1 tab BID PO 01/19/17 10:00 (Aldactone) 25 mg TID PO 01/19/17 09:00 01/19/17 13:20 (Pravachol) 40 mg HS PO 01/19/17 21:00 (D50w (Vial) Inj) 50 ml UNSCH PRN IV 01/19/17 08:45 (Glucagon Inj) 1 mg UNSCH PRN OTHER 01/19/17 08:45 Gentamicin Sulfate 520 mg/ Sodium Chloride 113 ml @ 100 mls/hr Q24H IV 01/19/17 12:00 01/19/17 13:22 (Morphine Inj) 2 mg Q3H PRN IV PUSH 01/19/17 09:00 01/19/17 13:27 Dextrose/Sodium Chloride 1,000 ml @ 42 mls/hr [id number] IV 01/19/17 08:45 01/19/17 09:38 Vancomycin HCl 1500 mg/Sodium Chloride 515 ml @ 250 mls/hr Q12H IV 01/19/17 16:00 01/19/17 16:23 Miscellaneous Information SPECIFIC LAB TO BE DRAWN:VANCOMYCIN TROUGH DATE TO... ONCE ONCE .XX 01/21/17 03:45 01/21/17 03:46 (Percocet 10-325 Mg) 1 tab Q4H PRN PO 01/19/17 15:45 Family History Dad: Alive at 85, [place] Mom: Alive and has Alzheimer's Social History Tobacco use: Quit a few months ago Alcohol use: Occasionally Illicit drug use: Denies Physical Exam Vital Signs Vital Signs Date Time Temp Pulse Resp B/P (MAP) Pulse Ox O2 Delivery O2 Flow Rate FiO2 01/19/17 12:00 97.6 75 18 121/74 (90) 96 01/19/17 08:00 97.0 76 18 111/60 (77) 96 01/19/17 07:49 73 01/19/17 04:00 97.1 69 18 117/73 (88) 97 01/19/17 03:35 01/19/17 03:12 98.1 71 14 115/61 (79) 96 Room Air 01/18/17 18:40 97.8 87 18 124/77 (93) 96 Room Air Physical Exam Plantar laceration 1cm length to L 4th toe sulcus with no gross contamination. Bleeds readily. Bone visible. Brisk capillary refill to digit. Neurovascularly intact. Laboratory Laboratory Tests Test 01/18/17 23:40 White Blood Count 9.5 Red Blood Count 4.20 Hemoglobin 13.7 Hematocrit 40.3 Mean Corpuscular Volume 95.9 Mean Corpuscular Hemoglobin 32.6 Mean Corpuscular Hemoglobin Concent 34.0 Red Cell Distribution Width 14.2 Platelet Count 194 Mean Platelet Volume 9.1 Neutrophils (%) (Auto) 50.4 Lymphocytes (%) (Auto) 35.6 Monocytes (%) (Auto) 10.3 Eosinophils (%) (Auto) 3.2 Basophils (%) (Auto) 0.5 Neutrophils # (Auto) 4.8 Lymphocytes # (Auto) 3.4 Monocytes # (Auto) 1.0 Eosinophils # (Auto) 0.3 Basophils # (Auto) 0.0 CBC Comment DIFF FINAL Differential Comment Prothrombin Time 11.2 Prothromb Time International Ratio 1.0 Activated Partial Thromboplast Time 26.6 Blood Urea Nitrogen 30 Creatinine 1.28 Random Glucose 144 Calcium Level 8.9 Sodium Level 137 Potassium Level 4.0 Chloride Level 102 Carbon Dioxide Level 28.0 Anion Gap 7 Estimat Glomerular Filtration Rate 58 Result Diagram: 01/18/17233901/18/172339 Imaging Last Impressions Ankle X-Ray 01/19/17 0000 Signed Impressions: Service Date/Time: December 08:40 - CONCLUSION: Extensive soft tissue swelling. No acute fracture identified. Maximino Loving MD Foot X-Ray 01/18/17 0000 Signed Impressions: Service Date/Time: Wednesday, January 18, 2017 20:46 - CONCLUSION: 1. No acute findings. Mild degenerative change of the left foot. No radiopaque foreign body identified. Polo Morse MD Assessment and Plan Assessment and Plan L 4th toe open PIP joint NPO after breakfast To OR for I&D open joint, possible pinning if unstable Continue IV antibiotics Will be WBAT in surgical shoe postoperatively Patient will need broad spectrum coverage oral antibiotics oral x 2 weeks upon d/c if no organisms grow from intraoperative culture, of 2 weeks oral culture-specific abx upon d/c Closed L 5th proximal phalanx fracture WBAT in surgical shoe Zamzam Johnson DPM Jan 19, 2017 18:13
[2017-01-19] MEDS ORDERED: FAMOTIDINE 20 MG/2 ML VIAL ONE (18:17)
[2017-01-19] MEDS ORDERED: MIDAZOLAM HCL 2 MG/2 ML VIAL ONE (18:17)
--- NOTE | 2017-01-19 19:14 | HHI.PR ---
Immediate Post Op Note Procedure Date: Jan 19, 2017 Pre Op Diagnosis: Open joint, L 4th Proximal interphalangeal joint Post Op Diagnosis: same Surgeon: Zamzam Johnson DPM Tab Builder(s): Staff Procedure: Irrigation & Debridement open L 4th PIP joint Findings: Consistent with diagnosis. Plantar L 4th toe sulcus with laceration exposing head of proximal phalanx plantarly and flexor tendon visible. Mild bleeding from tissue, No gross contamination noted. Irrigated with 9L NS, deep culture taken. Laceration revised and wound approximated with 2-0 nylon suture, followed by bandage with xeroform, 4x4, cling, cast padding,kip L foot. WBAT in surgical shoe L foot for this injury plus 5th toe closed fracture. Will need antibiotics based on intraop cultures vs broad spectrum oral abx x 2 weeks upon d/c. Will assess wound to determine if further surgery required on Monday. Continue IV antibiotics Additional Information: n/a Complications: none Specimen(s) removed: culture L 4th toe Estimated blood loss: minimal Anesthesia: General, Local (10mL 0.25% marcaine plain) Drains: None IVF Tourniquet time (min at mmHg) n/a Patient to: PACU Patient Condition: Good Date/Time of Procedure: SEE SURGICAL CARE RECORD Zamzam Johnson DPM Jan 19, 2017 19:14
--- NOTE | 2017-01-19 19:54 | RADRPT ---
EXAM DATE/TIME: 01/19/2017 19:16 [facility] COMPARISON: FOOT LEFT LIMITED (2VWS), January 18, 2017, 20:46. INDICATIONS : Post op left foot. MEDICAL HISTORY : Unobtainable. SURGICAL HISTORY : Unobtainable. ENCOUNTER: Subsequent ACUITY: 2 days PAIN SCORE: Non-responsive. LOCATION: Left foot. FINDINGS: 3 views of the left foot demonstrate no acute fracture or dislocation. The proximal phalanx of the fi fth digit has a stable appearance. There is mild joint space narrowing at the first metatarsophalange al joint. Lisfranc joint appears intact. No soft tissue abnormality or radiopaque foreign body is pankaj ntified. CONCLUSION: No acute left foot abnormality is identified. Conor Sweeney MD on January 19, 2017 at 19:50 Board Certified Radiologist. This report was verified electronically.
[2017-01-19] MEDS: PRAVASTATIN SOD 40 MG TAB PO SCH (20:24)
[2017-01-19] MEDS: oxyCODONE/ACETAMINOPHEN 10 MG/325 MG TAB PO PRN (20:30)
[2017-01-19] MEDS ORDERED: DO NOT ADM ANY ANTICOAGULANT DRUGS PRN (21:00)
[2017-01-20] VITALS (8 sets, daily range): BP systolic 99–112; BP diastolic 60–75; PULSE 80–92; RESP 18–19; TEMP 97.8–100.2; O2SAT 92–97
[2017-01-20] MEDS: MORPHINE SULFATE 4 MG/ML INJ IV PUSH PRN ×2 (00:11→04:56)
[2017-01-20] MEDS: VANCOMYCIN INJ 1,500 MG in SODIUM CHLORID 0.9% 500 ML INJ 500 ML IV SCH ×2 (04:56→17:21)
[2017-01-20] MEDS: oxyCODONE/ACETAMINOPHEN 10 MG/325 MG TAB PO PRN ×4 (07:55→21:37)
[2017-01-20] MEDS: DEXT 5%-NACL 0.9% 1000 ML INJ 1,000 ML IV SCH (08:34)
[2017-01-20] MEDS: SODIUM CHLORIDE 0.9% FLUSH 10 ML FLUSH IV FLUSH SCH ×2 (09:00→21:00)
[2017-01-20] MEDS: SACUBITRIL/VALSARTAN 24 MG-26 MG TAB PO SCH ×2 (10:20→21:36)
[2017-01-20] MEDS: SPIRONOLACTONE 25 MG TAB PO SCH ×3 (10:20→17:23)
[2017-01-20] MEDS: CARVEDILOL 12.5 MG TAB PO SCH ×2 (10:20→21:35)
[2017-01-20] MEDS: FUROSEMIDE 40 MG TAB PO SCH ×2 (10:21→21:36)
[2017-01-20] MEDS: CLOPIDOGREL 75 MG TAB PO SCH (10:21)
[2017-01-20] MEDS: GENTAMICIN IV SCH (12:41)
[2017-01-20] MEDS: SODIUM CHLORIDE 0.9% IV SCH (12:41)
--- NOTE | 2017-01-20 13:51 | HHI.PR ---
Subjective Remarks Follow up left foot injury. Patient states that his left foot is feeling better , but he continues to have pain in the left ankle and knee. No chest pain, dyspnea. Objective Vitals Vital Signs Date Time Temp Pulse Resp B/P (MAP) Pulse Ox O2 Delivery O2 Flow Rate FiO2 01/20/17 09:00 16 01/20/17 08:00 99.8 85 18 102/60 (74) 92 01/20/17 04:10 97.9 90 18 99/64 (76) 95 01/20/17 00:10 100.2 85 19 112/75 (87) 96 01/19/17 20:30 100.0 94 19 142/79 (100) 96 01/19/17 19:45 97 23 138/84 (102) 94 01/19/17 19:30 96 22 141/76 (97) 95 01/19/17 19:15 100 22 170/88 (115) 95 01/19/17 19:00 97.9 98 19 137/82 (100) 100 Nasal Cannula 4 01/19/17 16:00 99.5 89 18 137/82 (100) 98 I/O 01/19/17 01/19/17 01/19/17 01/20/17 01/20/17 01/20/17 06:59 14:59 22:59 06:59 14:59 22:59 Intake Total 623.5 ml 913 ml 120 ml Output Total 500 ml 1200 ml 300 ml Balance 123.5 ml -1200 ml 913 ml -180 ml Intake Oral 0 ml 360 ml 120 ml IV Total 623.5 ml 553 ml Output Urine Total 500 ml 1200 ml 300 ml # Voids 1 0 # Bowel Movements 0 0 0 0 Result Diagram: 01/18/17 2340 01/20/17 0720 Imaging Last Impressions Foot X-Ray 01/19/17 0000 Signed Impressions: Service Date/Time: December 19:16 - CONCLUSION: No acute left foot abnormality is identified. Conor Sweeney MD Ankle X-Ray 01/19/17 0000 Signed Impressions: Service Date/Time: December 08:40 - CONCLUSION: Extensive soft tissue swelling. No acute fracture identified. Maximino Loving MD Objective Remarks General: No acute distress. Heart: Regular rate and rhythm. No murmur. Lungs: Clear to auscultation bilaterally. No wheezes, rales, or rhonchi. Breathing is nonlabored. Abdomen: Soft, nontender, nondistended. Extremities: No lower extremity edema. Left foot bandaged. Left knee with swelling and overlying ecchymosis. Psych: Alert and oriented. Procedures 01/19/17 irrigation and debridement of open left fourth PIP joint Urinary Catheter: No Vascular Central Line Catheter: No A/P Problem List: (1) Open fracture of fourth metatarsal bone of left foot ICD Code: S92.342B - Displaced fracture of fourth metatarsal bone, left foot, initial encounter for open fracture Status: Acute (2) Left ankle pain ICD Code: M25.572 - Pain in left ankle and joints of left foot Status: Acute (3) Diabetes ICD Code: E11.9 - Type 2 diabetes mellitus without complications Status: Chronic (4) Afib ICD Code: I48.91 - Unspecified atrial fibrillation Status: Chronic (5) Left knee pain ICD Code: M25.562 - Pain in left knee Assessment and Plan 1. Open fracture, left fourth metatarsal: Status post irrigation and debridement by podiatry. Continue pain control, antibiotics. Cultures are pending. 2. Left ankle pain: Acute secondary to fall. No apparent fracture on x-ray. Ice as needed. Continue pain control. 3. Left knee pain: Patient reports chronic knee pain secondary to anterior cruciate ligament and MCL injuries. He also reports landing on his knee when he fell. There is tenderness, swelling, and ecchymosis. No fracture noted on imaging. Continue pain control, ice as needed. 4. Atrial fibrillation: Chronic. Status post pacemaker/AICD placement. Cardiology was consulted and cardiac clearance. Patient sees Dr. Vincent for cardiology. Continue telemetry monitoring. Medications. 5. Diabetes mellitus: Diabetic diet. Monitor Accu-Cheks and cover with sliding scale insulin. 6. DVT prophylaxis: SCD/RAYMOND hose. Discharge Planning Awaiting cultures to determine antibiotics. 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
[2017-01-20] MEDS: INSULIN ASPART SUPPLEMENTAL SCALE SQ SCH ×2 (16:00→21:37)
[2017-01-20] MEDS: PRAVASTATIN SOD 40 MG TAB PO SCH (21:35)
[2017-01-21] VITALS (9 sets, daily range): BP systolic 92–122; BP diastolic 53–74; PULSE 79–118; RESP 16–19; TEMP 97.7–99.9; O2SAT 93–98
[2017-01-21] MEDS: oxyCODONE/ACETAMINOPHEN 10 MG/325 MG TAB PO PRN ×6 (02:13→22:18)
[2017-01-21] MEDS: VANCOMYCIN INJ 1,500 MG in SODIUM CHLORID 0.9% 500 ML INJ 500 ML IV SCH (03:38)
[2017-01-21] MEDS ORDERED: PHARMACY ORDERED LAB ONE (03:45)
[2017-01-21 06:12] LABS: AUTOMATED NEUTROPHIL # 6.4 TH/MM3 (1.8-7.7); BASOPHIL % 0.3 % (0.0-2.0); EOSINOPHIL # 0.2 TH/MM3 (0-0.4); HEMATOCRIT 31.9 % (39.0-51.0); HEMO FLAGS DIFF FINAL; LYMPH % 24.9 % (9.0-44.0); LYMPHOCYTE # 2.5 TH/MM3 (1.0-4.8); MEAN CELL VOLUME 98.2 FL (80.0-100.0); MEAN CORPUSCULAR HEMOGLOBIN 33.8 PG (27.0-34.0); MEAN CORPUSCULAR HGB CONC 34.4 % (32.0-36.0); NEUT % 62.8 % (16.0-70.0); PLATELET COUNT 149 TH/MM3 (150-450); RED BLOOD COUNT 3.25 MIL/MM3 (4.50-5.90); RED CELL DISTRIBUTION WIDTH 13.7 % (11.6-17.2); WHITE BLOOD COUNT 10.2 TH/MM3 (4.0-11.0)
[2017-01-21] MEDS: INSULIN ASPART SUPPLEMENTAL SCALE SQ SCH ×4 (06:34→21:24)
[2017-01-21 06:37] LABS: BICARBONATE 24.7 MEQ/L (21.0-32.0)
[2017-01-21] MEDS: DEXT 5%-NACL 0.9% 1000 ML INJ 1,000 ML IV SCH (08:23)
[2017-01-21] MEDS ORDERED: INSULIN DEGLUDEC 30 UNIT SQ SCH (09:00)
[2017-01-21] MEDS: CLOPIDOGREL 75 MG TAB PO SCH (10:10)
[2017-01-21] MEDS: SPIRONOLACTONE 25 MG TAB PO SCH ×3 (10:10→17:06)
[2017-01-21] MEDS: FUROSEMIDE 40 MG TAB PO SCH ×2 (10:11→21:23)
[2017-01-21] MEDS: SACUBITRIL/VALSARTAN 24 MG-26 MG TAB PO SCH ×2 (10:11→21:26)
[2017-01-21] MEDS: CARVEDILOL 12.5 MG TAB PO SCH ×2 (10:11→21:23)
[2017-01-21] MEDS: SODIUM CHLORIDE 0.9% FLUSH 10 ML FLUSH IV FLUSH SCH ×2 (10:13→21:24)
--- NOTE | 2017-01-21 12:06 | HHI.PR ---
Subjective Remarks Follow up left foot injury. Left knee pain is improving. Able to ambulate better today. No chest pain or dyspnea. Objective Vitals Vital Signs Date Time Temp Pulse Resp B/P (MAP) Pulse Ox O2 Delivery O2 Flow Rate FiO2 01/21/17 09:39 97 01/21/17 08:00 98.9 118 16 93/58 (70) 95 01/21/17 04:15 99.9 89 18 98/61 (73) 96 01/21/17 03:16 18 01/21/17 00:57 Room Air 01/21/17 00:15 99.2 87 18 122/70 (87) 98 01/20/17 20:15 99.5 84 18 101/64 (76) 96 01/20/17 20:06 92 01/20/17 16:00 97.8 83 18 108/68 (81) 93 01/20/17 12:55 97 I/O 01/20/17 01/20/17 01/20/17 01/21/17 01/21/17 01/21/17 07:00 15:00 23:00 07:00 15:00 23:00 Intake Total 120 ml 600 ml 360 ml 120 ml Output Total 300 ml 300 ml 600 ml Balance -180 ml 600 ml 60 ml -480 ml Intake Oral 120 ml 600 ml 360 ml 120 ml Output Urine Total 300 ml 300 ml 600 ml # Voids 3 # Bowel Movements 0 0 0 0 Result Diagram: 01/21/17 0510 01/21/17 0510 Imaging Last Impressions Foot X-Ray 01/19/17 0000 Signed Impressions: Service Date/Time: December 19:16 - CONCLUSION: No acute left foot abnormality is identified. Conor Sweeney MD Ankle X-Ray 01/19/17 0000 Signed Impressions: Service Date/Time: December 08:40 - CONCLUSION: Extensive soft tissue swelling. No acute fracture identified. Maximino Loving MD Objective Remarks General: No acute distress. Heart: Regular rate and rhythm. No murmur. Lungs: Clear to auscultation bilaterally. No wheezes, rales, or rhonchi. Breathing is nonlabored. Abdomen: Soft, nontender, nondistended. Extremities: No lower extremity edema. Left foot bandaged. Left knee with swelling and overlying ecchymosis, improving. Psych: Alert and oriented. Procedures 01/19/17 irrigation and debridement of open left fourth PIP joint Urinary Catheter: No Vascular Central Line Catheter: No A/P Problem List: (1) Open fracture of fourth metatarsal bone of left foot ICD Code: S92.342B - Displaced fracture of fourth metatarsal bone, left foot, initial encounter for open fracture Status: Acute (2) Left ankle pain ICD Code: M25.572 - Pain in left ankle and joints of left foot Status: Acute (3) Diabetes ICD Code: E11.9 - Type 2 diabetes mellitus without complications Status: Chronic (4) Afib ICD Code: I48.91 - Unspecified atrial fibrillation Status: Chronic (5) Left knee pain ICD Code: M25.562 - Pain in left knee Assessment and Plan 1. Open fracture, left fourth metatarsal: Status post irrigation and debridement by podiatry. Continue pain control, antibiotics. Cultures are negative so far. 2. Left ankle pain: Acute secondary to fall. No apparent fracture on x-ray. Ice as needed. Continue pain control. 3. Left knee pain: Improving. Patient reports chronic knee pain secondary to anterior cruciate ligament and MCL injuries. He also reports landing on his knee when he fell. There is tenderness, swelling, and ecchymosis. No fracture noted on imaging. Continue pain control, ice as needed. 4. Atrial fibrillation: Chronic. Status post pacemaker/AICD placement. Cardiology was consulted for cardiac clearance. Patient sees Dr. Vincent for cardiology. Continue telemetry monitoring. Medications. 5. Diabetes mellitus: Diabetic diet. Monitor Accu-Cheks and cover with sliding scale insulin. 6. DVT prophylaxis: SCD/RAYMOND hose. Discharge Planning Awaiting cultures to determine antibiotics. 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
[2017-01-21] MEDS: SODIUM CHLORIDE 0.9% IV SCH (12:43)
[2017-01-21] MEDS: GENTAMICIN IV SCH (12:43)
[2017-01-21] MEDS: VANCOMYCIN INJ 1,250 MG in SODIUM CHLOR 0.9% 250 ML INJ 250 ML IV SCH (15:37)
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
[2017-01-21] MEDS: PRAVASTATIN SOD 40 MG TAB PO SCH (21:23)
[2017-01-22] MEDS: oxyCODONE/ACETAMINOPHEN 10 MG/325 MG TAB PO PRN ×3 (03:49→12:25)
[2017-01-22 03:58] VITALS: BP 127/56; PULSE 72; RESP 18; TEMP 99.2; O2SAT 99
[2017-01-22] MEDS: VANCOMYCIN INJ 1,250 MG in SODIUM CHLOR 0.9% 250 ML INJ 250 ML IV SCH (04:01)
[2017-01-22] MEDS: INSULIN ASPART SUPPLEMENTAL SCALE SQ SCH ×2 (07:00→11:00)
[2017-01-22 07:45] VITALS: BP 95/60; PULSE 86; RESP 18; TEMP 99.7; O2SAT 96
[2017-01-22] MEDS: SACUBITRIL/VALSARTAN 24 MG-26 MG TAB PO SCH (08:07)
[2017-01-22] MEDS: SPIRONOLACTONE 25 MG TAB PO SCH ×2 (08:07→12:24)
[2017-01-22] MEDS: CARVEDILOL 12.5 MG TAB PO SCH (08:08)
[2017-01-22] MEDS: CLOPIDOGREL 75 MG TAB PO SCH (08:08)
[2017-01-22] MEDS: FUROSEMIDE 40 MG TAB PO SCH (08:09)
[2017-01-22] MEDS: DEXT 5%-NACL 0.9% 1000 ML INJ 1,000 ML IV SCH (08:12)
[2017-01-22] MEDS: SODIUM CHLORIDE 0.9% FLUSH 10 ML FLUSH IV FLUSH SCH (08:18)
--- NOTE | 2017-01-22 09:19 | MP ---
cc: FERNANDO FRITZ MIREILLE DATE OF : 1960 DATE OF SURGERY: 01/19/2017 INDICATIONS FOR PROCEDURE: This patient presented to the emergency department after sustaining a laceration to the plantar aspect of the left 4th digit approximately two days prior to his arrival. He noticed the next day after being draped that he had some exposed bone in the area with further bleeding. He is on blood thinners, and is diabetic, and was concerned, so he went to the emergency department for evaluation and was found to have an open joint to the left 4th proximal interphalangeal joint. Podiatry was consulted. I discussed with the patient the risks, benefits, potential complications of surgery that he needed to undergo irrigation and debridement of this open joint in order to reduce his infection, risks since stated he had tripped over a stump or an oak root of sort in his yard. I explained to him the high-risk of infection due to waiting a long period of time before coming in. He understood the risks, benefits and complications and consented to move forward with surgery. He was seen in the preop holding by myself, nursing staff, anesthesia, where the correct patient side and site were all confirmed to be correct in the left fourth toe. The patient was taken back to the surgical suite, he remained in supine position on his bed where attention was directed to the left foot. It was prepped and draped in normal sterile fashion followed by attention directed to the left fourth toe. There was noted to be a laceration to the fourth toe sulcus plantarly, approximately 1 cm in length and upon hyperextension of the joint was noted to have bone of the proximal phalangeal head of the fourth digit noted protruding plantarly through the area as well as visible flexor tendons in the area. There was mild bleeding tissue with no gross contamination noted. Throughout the area it was copiously irrigated with 9 liters normal sterile saline as well as rongeur to remove any nonviable appearing tissue and bloody clot tissue with 9 liters normal saline followed by deep culture taken of the area followed by revision of the laceration and wound reapproximation with 2-0 nylon suture, followed by a bandage consisting of Xeroform to the laceration area, 4x4s, Christopher, cast padding and Kai bandage to the left foot. He will be weightbearing as tolerated in surgical shoe left foot for this as well as his left fifth toe closed fracture that was noted on x-ray to the proximal phalangeal base. He tolerated the procedure and anesthesia well without complications and was taken back to Post-Anesthesia Care Unit. Vital signs stable and vascular status intact to the left foot. He will also need antibiotics based on these intraoperative cultures that were taken, and if they cone back negative he will need broad-spectrum antibiotics upon discharge for two weeks and follow up in the clinic in one week for dressing change. I will assess the wound on Monday to determine if further surgery is required and to review the cultures, continue IV antibiotics in the meantime. SHORT OPERATIVE NOTE. SURGEON Fernando Fritz DPM EXPELLER OPERATOR: Staff. PREOPERATIVE DIAGNOSIS Open joint left fourth proximal interphalangeal joint. POSTOPERATIVE DIAGNOSIS: Open joint left fourth proximal interphalangeal joint. PROCEDURE: Irrigation and debridement open left fourth proximal interphalangeal joint. PATHOLOGY: Culture, left fourth toe. ANESTHESIA: General endotracheal anesthesia plus local consisting of 10 mL of 0.25% Marcaine plain. ESTIMATED BLOOD LOSS: Minimal COMPLICATIONS: None. TOURNIQUET Not utilized. CONDITION: Stable to PACU. DISPOSITION: Weightbearing as tolerated and surgical shoe left foot. Will need oral antibiotics upon discharge and continue IV antibiotics. Will assess in the coming days to determine if further surgery is required. Fernando GARCIA/SINDHU /7:16 PM /8:43 AM
[2017-01-22 11:41] VITALS: BP 103/57; PULSE 69; RESP 18; TEMP 98.4; O2SAT 94
[2017-01-22] MEDS: GENTAMICIN IV SCH (12:32)
[2017-01-22] MEDS: SODIUM CHLORIDE 0.9% IV SCH (12:32)
--- NOTE | 2017-01-22 13:20 | HHI.DCPOC ---
Discharge Care Plan Diagnosis: (1) Open fracture of fourth metatarsal bone of left foot (2) Afib (3) Diabetes (4) Left ankle pain (5) Left knee pain Goals to Promote Your Health * To prevent worsening of your condition and complications * To maintain your health at the optimal level Directions to Meet Your Goals Take your medications as prescribed Follow your dietary instruction Follow activity as directed Keep your appointments as scheduled Take your immunizations and boosters as scheduled If your symptoms worsen call your PCP, if no PCP go to Urgent Care Center or Emergency Room Smoking is Dangerous to Your Health. Avoid second hand smoke Call the 24-hour hour crisis hotline for domestic abuse at Holger Salas MD Jan 22, 2017 13:20
--- NOTE | 2017-01-22 13:20 | HHI.FF ---
Face to Face Verification Diagnosis: (1) Open fracture of fourth metatarsal bone of left foot Home Health Nursing Order: Wound care and dressing changes (Dry sterile dressing change on 01/26/17) Nursing assessment with vital signs I have seen patient Jeff Shah on 01/22/17. My clinical findings support the need for the requested home health care services because: Infection w/ risk of complications I certify that my clinical findings support that this patient is homebound because: Unsteady gait/balance Holger Salas MD Jan 22, 2017 13:20
[2017-01-22] MEDS ORDERED: LEVO750T3 PO (13:24)
[2017-01-22] MEDS ORDERED: OXYC1TAB36 PO (13:24)
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
[2017-01-22] MEDS ORDERED: PHARMACY ORDERED LAB ONE (15:45)
[2017-01-23] MEDS ORDERED: PHARMACY ORDERED LAB ONE (03:45)
--- NOTE | 2017-01-26 13:08 | PQ ---
Physician Query Response Document PATIENT: NATY MCGOVERN : 1960 ADMIT DATE: 01/19/2017 1:35 AM DISCH DATE: 01/22/2017 3:44 PM RESPONDING PROVIDER #: [email or web address] QUERY TEXT: Debridement Type Based on your medical judgment, can you further clarify the precise nature, depth, extent, and/or met hods of wound debridement utilized in this case, such as: --EXCISIONAL debridement --NON-EXCISIONAL debridement --Other debridement --Other Specify Based on your medical judgment, can you further clarify the specific structures debrided such as: --Skin --Subcutaneous tissue --Fascia --Muscle --Other Specify If you have any additional questions/comments and/or concerns, please do not hesitate to reach out to the CDI/Coding Hotline, Ext. [phone]. The patient's Clinical Indicators include: OP report 01/19/17 documents: upon hyperextension of the joint was noted to have bone of the proximal phalangeal head of the fourth digit noted protruding plantarly through the area as well as visible f lexor tendons in the area. There was mild bleeding tissue with no gross contamination noted. Througho ut the area it was copiously irrigated with 9 liters normal sterile saline as well as rongeur to margaret ve any nonviable appearing tissue and bloody clot tissue with 9 liters normal saline. Query created by: Madyson Hannah on 01/24/2017 5:05 PM RESPONSE TEXT: Irrigation and excisional debridement was performed of nonviable subcutaneous tissue down to level of joint capsule, but not including bone of the proximal interphalangeal joint level of left 4th digit. Electronically signed by: oRsalva Johnson MD 01/25/2017 7:13 PM
== END 2017-01-22 15:44 | disposition home health service (06) | DRG 465 ==
LOC: NEPD 18:24 → NEDA 01-19 01:35 → N06B 01-19 03:48
PROVIDERS: ADMIT Family Medicine; ATTEND Family Medicine
PROC: 3E10X8Z Irrigation of Skin and Mucous Membranes using Irrigating Substance (ICD-10-PCS; 2017-01-19)
PROC: 0SSQXZZ Reposition Left Toe Phalangeal Joint, External Approach (ICD-10-PCS; 2017-01-19)
PROC: 0JBR0ZZ Excision of Left Foot Subcutaneous Tissue and Fascia, Open Approach (ICD-10-PCS; principal; 2017-01-19 18:04)
DX: S93.115A Dislocation of interphalangeal joint of left lesser toe(s), initial encounter (principal); E11.40 Type 2 diabetes mellitus with diabetic neuropathy, unspecified; I50.9 Heart failure, unspecified; Z79.84 Long term (current) use of oral hypoglycemic drugs; W01.0XXA Fall on same level from slipping, tripping and stumbling without subsequent striking against object, initial encounter; Z79.02 Long term (current) use of antithrombotics/antiplatelets; I10 Essential (primary) hypertension; I25.10 Atherosclerotic heart disease of native coronary artery without angina pectoris; I25.2 Old myocardial infarction; Z95.810 Presence of automatic (implantable) cardiac defibrillator; Z95.5 Presence of coronary angioplasty implant and graft; I48.2 Chronic atrial fibrillation; M25.562 Pain in left knee; Z87.891 Personal history of nicotine dependence
CPT/HCPCS: 28660; 73600; 73620; 73630; 76937; 80048; 80202; 82565; 82948; 85025; 85610; 85730; 86850; 86900; 86901; 87015; 87070; 87102; 87116; 87205; 87206; 90471; 90714; 93005; 96365; 96375; J1580; J2250; J2270; J2405; J3010; J3370; J7040; J7042; J7050; L3260

== ENCOUNTER 2017-08-28 10:14 | Inpatient (IN) | payer OTHER, MEDICARE ==
[2017-08-28] VITALS (7 sets, daily range): BP systolic 119–142; BP diastolic 75–88; PULSE 80–99; RESP 18–26; TEMP 97.1–97.9; O2SAT 93–99
[~2017-08-28] VITALS: Ht 185.4 cm; Wt 147.2 kg
[~2017-08-28 10:14] MED LIST changes: -ATOR40TA16 PO; -HYDR-3580 PO; +LEVO750T3 PO; -METF500T4 PO; +OXYC1TAB36 PO; -PROT40TA PO
[2017-08-28] MEDS ORDERED: PANT40TA3 PO (10:30)
--- NOTE | 2017-08-28 10:49 | PD ---
HPI Chief Complaint: Chest Pain Time Seen by Provider: 10:48 Travel History International Travel<30 days: No Contact w/Intl Traveler<30days: No Traveled to known affect area: No History of Present Illness HPI Patient is a 57-year-old male with a history of multiple heart attacks in the past followed by Dr. Vincent on Eliquis, Plavix, and trust toe and aspirin presents emergency department with a chief complaint of "I think I am having a heart attack". Patient states he started with pain between shoulder blades radiating forward into his chest and he got fairly severe this morning on the shower but his pain actually started last night. He thought he was just having indigestion as he had a big dinner for Easter yesterday but when the pain persisted this morning he decided to come in and be checked out. States his pain is fairly intense right now, so she was diaphoresis and mild shortness of breath. He does have a pacer/defibrillator in place. PFSH Past Medical History Hx Anticoagulant Therapy: Yes Arthritis: No Asthma: No Autoimmune Disease: No Blood Disorders: No Anxiety: Yes Depression: Yes Heart Rhythm Problems: No Cancer: Yes (CHEEK) Cardiovascular Problems: Yes High Cholesterol: Yes Chemotherapy: No Chest Pain: Yes Congestive Heart Failure: Yes COPD: No Cerebrovascular Accident: No Coronary Artery Disease: Yes Diabetes: Yes Patient Takes Glucophage: No Diminished Hearing: No Endocrine: Yes Gastrointestinal Disorders: No GERD: No Glaucoma: No Genitourinary: No Headaches: No Hepatitis: No Hiatal Hernia: No Hypertension: Yes Immune Disorder: No Implanted Vascular Access Dvce: No Kidney Stones: No Musculoskeletal: No Neurologic: No Psychiatric: No Reproductive: No Respiratory: No Immunizations Current: Yes Myocardial Infarction: Yes (X 01 July 2005) Radiation Therapy: No Renal Failure: No Seizures: No Sickle Cell Disease: No Sleep Apnea: No Thyroid Disease: No Ulcer: No Tetanus Vaccination: < 5 Years Influenza Vaccination: Yes Past Surgical History Abdominal Surgery: No AICD: No Body Medical Devices: AICD Cardiac Surgery: Yes (AICD) Coronary Stent: Yes (X4) Ear Surgery: No Endocrine Surgery: No Eye Surgery: No Genitourinary Surgery: No Gynecologic Surgery: No Oral Surgery: Yes (TONSILLECTOMY) Pacemaker: No Thoracic Surgery: Yes (STENTS X3 in 2005) Tonsillectomy: Yes Social History Alcohol Use: Yes (OCCASIONALLY) Tobacco Use: No Substance Use: No Allergies-Medications (Allergen,Severity, Reaction): Coded Allergies: penicillin G (Unverified Allergy, Severe, unknown childhood rxn, 08/28/17) Reported Meds & Prescriptions Reported Meds & Active Scripts Active Reported Gabapentin 800 Mg Tab 800 Mg PO DAILY Symbicort Inh (Budesonide/Formoterol Fumarate) 160-4.5 Mcg/Act Aero 2 Puff INH Q12HR Eliquis (Apixaban) 2.5 Mg Tab 2.5 Mg PO BID Pantoprazole (Pantoprazole Sodium) 40 Mg Tab 40 Mg PO DAILY Carvedilol 25 Mg Tab 25 Mg PO BID Furosemide 40 Mg Tab 40 Mg PO BID Spironolactone 25 Mg Tab 25 Mg PO TID Tresiba Flextouch Pen Inj (Insulin Degludec Inj) 300 unit/3 ML Pen 30 Units SQ DAILY Entresto (Sacubitril-Valsartan) 24-26 Mg Tab 1 Tab PO BID Plavix (Clopidogrel Bisulfate) 75 Mg Tab 75 Mg PO DAILY Proventil Hfa 6.7 GM Inh (Albuterol Sulfate) 90 Mcg/Act Aer 2 Puff INH BID PRN Review of Systems Except as stated in HPI: all other systems reviewed are Neg Physical Exam Narrative GENERAL: Well-developed, morbidly obese, no obvious distress, clammy skin. SKIN: Focused skin assessment warm/dry. Clammy HEAD: Atraumatic. Normocephalic. EYES: Pupils equal and round. No scleral icterus. No injection or drainage. ENT: No nasal bleeding or discharge. Mucous membranes pink and moist. NECK: Trachea midline. No JVD. CARDIOVASCULAR: Regular rate and rhythm. No murmur appreciated. RESPIRATORY: No accessory muscle use. Clear to auscultation. Breath sounds equal bilaterally. GASTROINTESTINAL: Abdomen soft, non-tender, nondistended. Hepatic and splenic margins not palpable. MUSCULOSKELETAL: No obvious deformities. No clubbing. No cyanosis. No edema. NEUROLOGICAL: Awake and alert. No obvious cranial nerve deficits. Motor grossly within normal limits. Normal speech. PSYCHIATRIC: Appropriate mood and affect; insight and judgment normal. Data Data Last Documented VS Vital Signs Date Time Temp Pulse Resp B/P (MAP) Pulse Ox O2 Delivery O2 Flow Rate FiO2 08/28/17 10:26 81 20 119/85 (96) 99 Room Air 4/2/18 10:16 97.1 Orders Orders Electrocardiogram (08/28/17 10:37) Complete Blood Count With Diff (08/28/17 10:37) Basic Metabolic Panel (Bmp) (08/28/17 10:37) Ckmb (Isoenzyme) Profile (08/28/17 10:37) Troponin I (08/28/17 10:37) Chest, Single Ap (08/28/17 10:37) Iv Access Insert/Monitor (08/28/17 10:37) Ecg Monitoring (08/28/17 10:37) Oxygen Administration (08/28/17 10:37) Oximetry (08/28/17 10:37) Nitroglycerin Sl (Nitrostat Sl) (08/28/17 11:00) CKMB (08/28/17 10:35) CKMB% (08/28/17 10:35) Admit Order (Ed Use Only) (08/28/17 ) Labs Laboratory Tests Test 08/28/17 10:35 White Blood Count 8.9 TH/MM3 Red Blood Count 4.37 MIL/MM3 Hemoglobin 14.9 GM/DL Hematocrit 42.6 % Mean Corpuscular Volume 97.6 FL Mean Corpuscular Hemoglobin 34.1 PG Mean Corpuscular Hemoglobin Concent 35.0 % Red Cell Distribution Width 13.9 % Platelet Count 198 TH/MM3 Mean Platelet Volume 9.6 FL Neutrophils (%) (Auto) 66.7 % Lymphocytes (%) (Auto) 19.1 % Monocytes (%) (Auto) 6.7 % Eosinophils (%) (Auto) 6.5 % Basophils (%) (Auto) 1.0 % Neutrophils # (Auto) 6.0 TH/MM3 Lymphocytes # (Auto) 1.7 TH/MM3 Monocytes # (Auto) 0.6 TH/MM3 Eosinophils # (Auto) 0.6 TH/MM3 Basophils # (Auto) 0.1 TH/MM3 CBC Comment DIFF FINAL Differential Comment Blood Urea Nitrogen 28 MG/DL Creatinine 1.55 MG/DL Random Glucose 169 MG/DL Calcium Level 9.1 MG/DL Sodium Level 139 MEQ/L Potassium Level 4.3 MEQ/L Chloride Level 107 MEQ/L Carbon Dioxide Level 24.7 MEQ/L Anion Gap 7 MEQ/L Estimat Glomerular Filtration Rate 46 ML/MIN Total Bilirubin 0.5 MG/DL Direct Bilirubin 0.1 MG/DL Indirect Bilirubin 0.4 MG/DL Aspartate Amino Transf (AST/SGOT) 68 U/L Alanine Aminotransferase (ALT/SGPT) 99 U/L Alkaline Phosphatase 63 U/L Total Creatine Kinase 101 U/L Creatine Kinase MB 3.2 NG/ML Troponin I LESS THAN 0.02 NG/ML Total Protein 7.7 GM/DL Albumin 3.5 GM/DL MDM Medical Decision Making Medical Screen Exam Complete: Yes Emergency Medical Condition: Yes Differential Diagnosis ACS, [place], dissection seems highly unlikely, Narrative Course Patient room to the emergency department, I have a very low index of suspicion for dissection in this patient. Initially after his troponin is EKG were negative the patient was slotted for chest pain center, after discussion with [facility] [place] [facility] we have come to an agreement that the patient is probably more on an unstable angina pathway and should be admitted to the hospital. I discussed this patient with Dr. Vincent's staff and he has been made aware of the patient. Will be admitted to Dr. Dawson service. Dr. Dawson after seeing the patient has some concerns the patient may have dissection a CT aorta was ordered which was negative: Last 24 hours Impressions Chest X-Ray 08/28/17 1037 Signed Impressions: Service Date/Time: Monday, August 28, 2017 10:53 - CONCLUSION: Stable cardiomegaly. The lungs are clear. Tl Taylor MD Aorta CTA 08/28/17 0000 Signed Impressions: Service Date/Time: Monday, August 28, 2017 14:47 - CONCLUSION: 1. No evidence of dissection of the thoracic or abdominal aorta. 2. Cardiomegaly. 3. Old calcified granulomatous nodes within the right ambreen and 2 small calcified granuloma at the right lung base. 4. Mildly distended gallbladder. 5. 3.7 x 2.1 cm cystic lesion within the left kidney this is incompletely evaluated. It measures 40 Hounsfield units which is somewhat more than expected. MRI imaging at some point without and with contrast for more definitive assessment of this abnormality is warranted. Maximino Loving MD Diagnosis Primary Impression: Chest pain Admitting Information Admitting Physician Requests: Observation Condition: Stable Giovani Maxwell MD Aug 28, 2017 10:49
[2017-08-28] MEDS ORDERED: NITROGLYCERIN 0.4 MG SL 25 TABS/BTL SL ONE (11:00)
[2017-08-28 11:09] LABS: BASOPHIL # 0.1 TH/MM3 (0-0.2); EOSINOPHIL # 0.6 TH/MM3 (0-0.4); EOSINOPHIL % 6.5 % (0.0-4.0); HEMATOCRIT 42.6 % (39.0-51.0); HEMOGLOBIN 14.9 GM/DL (13.0-17.0); LYMPH % 19.1 % (9.0-44.0); LYMPHOCYTE # 1.7 TH/MM3 (1.0-4.8); MEAN CELL VOLUME 97.6 FL (80.0-100.0); MEAN CORPUSCULAR HEMOGLOBIN 34.1 PG (27.0-34.0); MEAN PLATELET VOLUME 9.6 FL (7.0-11.0); MONO % 6.7 % (0.0-8.0); MONOCYTE # 0.6 TH/MM3 (0-0.9); NEUT % 66.7 % (16.0-70.0); PLATELET COUNT 198 TH/MM3 (150-450); RED BLOOD COUNT 4.37 MIL/MM3 (4.50-5.90); RED CELL DISTRIBUTION WIDTH 13.9 % (11.6-17.2); WHITE BLOOD COUNT 8.9 TH/MM3 (4.0-11.0)
[2017-08-28 11:39] LABS: TROPONIN I LESS THAN 0.02 NG/ML (0.02-0.05)
--- NOTE | 2017-08-28 11:39 | RADRPT ---
EXAM DATE/TIME: 08/28/2017 10:53 [facility] COMPARISON: CHEST SINGLE AP, July 29, 2014, 21:28. INDICATIONS : Left side chest pain. MEDICAL HISTORY : Cardiovascular disease. Diabetes mellitus type 1. SURGICAL HISTORY : Pacemaker. ENCOUNTER: Initial ACUITY: 1 day PAIN SCORE: 8/10 LOCATION: Left chest FINDINGS: The heart is enlarged, similar in appearance to prior most lungs are symmetrically aerated and no foc al infiltrates seen. Bipolar cardiac pacer leads in place. Both hemidiaphragms are well delineated. CONCLUSION: Stable cardiomegaly. The lungs are clear. Tl Taylor MD on August 28, 2017 at 11:36 Board Certified Radiologist. This report was verified electronically.
[2017-08-28 11:43] LABS: BICARBONATE 24.7 MEQ/L (21.0-32.0); BLOOD UREA NITROGEN 28 MG/DL (7-18); CALCIUM 9.1 MG/DL (8.5-10.1); CHLORIDE 107 MEQ/L (98-107); CREATININE 1.55 MG/DL (0.60-1.30); GLOMERULAR FILTRATION RATE 46 ML/MIN (>89); GLUCOSE,RANDOM 169 MG/DL (74-106); SODIUM (NA) 139 MEQ/L (136-145)
[2017-08-28] MEDS ORDERED: IOHEXOL 350 MG/ML 10 ML VIAL (for RAD DIAG) IVCONTRAST ONE (12:20)
[2017-08-28] MEDS ORDERED: APIX2.5T PO (12:55)
[2017-08-28] MEDS ORDERED: ASPIRIN 325 MG TAB PO SCH (14:15)
[2017-08-28] MEDS ORDERED: NITROGLYCERIN 0.4 MG SL 25 TABS/BTL SL PRN (14:15)
[2017-08-28] MEDS ORDERED: SYMB160A INH (14:19)
[2017-08-28] MEDS ORDERED: GABA800T PO (14:19)
[2017-08-28] MEDS ORDERED: BISACODYL 10 MG SUPP RECTAL PRN (14:30)
[2017-08-28] MEDS ORDERED: SENNOSIDES 8.6 MG TAB PO PRN (14:30)
[2017-08-28] MEDS ORDERED: ACETAMINOPHEN 325 MG TAB PO PRN ×2 (14:30)
[2017-08-28] MEDS ORDERED: GLUCAGON 1 MG/ML VIAL OTHER PRN (14:30)
[2017-08-28] MEDS ORDERED: DEXTROSE 50% IN WATER 50 ML VIAL(D50) IV PUSH PRN (14:30)
[2017-08-28] MEDS ORDERED: NALOXONE HCL 0.4 MG/ML AMP IV PUSH PRN (14:30)
[2017-08-28] MEDS ORDERED: ONDANSETRON HCL 4 MG/2 ML VIAL IVP PRN (14:30)
[2017-08-28] MEDS ORDERED: LACTULOSE SYRUP 20 GM/30 ML CUP PO PRN (14:30)
[2017-08-28] MEDS ORDERED: ACETAMINOPHEN/HYDROcodone 325 MG/5 MG TAB PO PRN (14:30)
--- NOTE | 2017-08-28 14:34 | HHI.HP ---
HPI Service [facility] Primary Care Physician Wendi Sarabia DO Admission Diagnosis Chest Pain Diagnoses: Chief Complaint: Chest pain Travel History International Travel<30 Days: No Contact w/Intl Traveler <30 Da: No Traveled to Known Affected Are: No History of Present Illness This is a 57-year-old male who presents to the emergency department complaining of chest pain. Started last night after having a big dinner for when he developed sharp pain between the shoulder blades. He took Tylenol and then went to bed but had difficulty sleeping because of pain and shortness of breath. He also had upper abdominal pain. This morning he complained of severe pressure/burning chest discomfort without radiation associated with diaphoresis , shortness of breath and nausea prompting him to present to the emergency department because his symptoms are similar when he had TN in the past. Denies palpitations, dizziness, fever, chills and URI symptoms. His abdominal pain has resolved but continues to have back and chest pain. Sublingual nitroglycerin provided temporary relief. Patient history of CAD and has received 4 stents last one in 2010 to LAD. He also has cardiomyopathy status post AICD last ejection fraction 35% on Entresto, Coreg, Lasix and Aldactone, A. fib status post pacemaker on Coreg and Eliquis, chronic kidney disease stage II-III, hyperlipidemia, diabetes mellitus, hypertension, obesity, skin cancer, anxiety and depression. All other systems reviewed negative. Discussed with ER MD, awaiting return call from patient's ophthalmic dispenser and obtain CTA to rule out aortic dissection. We will also check lipase Review of Systems Except as stated in HPI: all other systems reviewed are Neg Past Family Social History Past Medical History As previously mentioned Past Surgical History As previously mentioned, tonsillectomy Reported Medications Gabapentin 800 Mg Tab 800 Mg PO DAILY Symbicort Inh (Budesonide/Formoterol Fumarate) 160-4.5 Mcg/Act Aero 2 Puff INH Q12HR Eliquis (Apixaban) 2.5 Mg Tab 2.5 Mg PO BID Pantoprazole (Pantoprazole Sodium) 40 Mg Tab 40 Mg PO DAILY Carvedilol 25 Mg Tab 25 Mg PO BID Furosemide 40 Mg Tab 40 Mg PO BID Spironolactone 25 Mg Tab 25 Mg PO TID Tresiba Flextouch Pen Inj (Insulin Degludec Inj) 300 unit/3 ML Pen 30 Units SQ DAILY Entresto (Sacubitril-Valsartan) 24-26 Mg Tab 1 Tab PO BID Plavix (Clopidogrel Bisulfate) 75 Mg Tab 75 Mg PO DAILY Proventil Hfa 6.7 GM Inh (Albuterol Sulfate) 90 Mcg/Act Aer 2 Puff INH BID PRN Allergies: Coded Allergies: penicillin G (Unverified Allergy, Severe, unknown childhood rxn, 08/28/17) Family History CAD Social History Occasional alcohol use does not smoke or use illicit drug Physical Exam Vital Signs Vital Signs Date Time Temp Pulse Resp B/P (MAP) Pulse Ox O2 Delivery O2 Flow Rate FiO2 08/28/17 12:51 80 18 121/78 (92) 98 Room Air 08/28/17 10:26 81 20 119/85 (96) 99 Room Air 08/28/17 10:22 80 20 99 Room Air 08/28/17 10:16 97.1 99 26 132/88 (103) 98 Physical Exam GENERAL: This is an obese, well-developed patient, in no apparent distress. SKIN: No rashes, ecchymoses or lesions. Cool and dry. HEAD: Atraumatic. Normocephalic. No temporal or scalp tenderness. EYES: Pupils equal round and reactive. Extraocular motions intact. No scleral icterus. No injection or drainage. ENT: Nose without bleeding, purulent drainage or septal hematoma. Throat without erythema, tonsillar hypertrophy or exudate. Uvula midline. Airway patent. NECK: Trachea midline. No JVD or lymphadenopathy. Supple, nontender, no meningeal signs. CARDIOVASCULAR: Regular rate and rhythm without murmurs, gallops, or rubs. Tender chest wall RESPIRATORY: Clear to auscultation. Breath sounds equal bilaterally. No wheezes , rales, or rhonchi. GASTROINTESTINAL: Abdomen soft, non-tender, obese tender epigastric and right upper quadrant. No guarding. MUSCULOSKELETAL: Extremities without clubbing, cyanosis, or edema. No joint tenderness, effusion, or edema noted. No calf tenderness. Negative Homans sign bilaterally. Tender lower thoracic spine with no swelling or redness NEUROLOGICAL: Awake and alert. Cranial nerves II through XII intact. Motor and sensory grossly within normal limits. Five out of 5 muscle strength in all muscle groups. Normal speech. Laboratory Laboratory Tests Test 08/28/17 10:35 White Blood Count 8.9 Red Blood Count 4.37 Hemoglobin 14.9 Hematocrit 42.6 Mean Corpuscular Volume 97.6 Mean Corpuscular Hemoglobin 34.1 Mean Corpuscular Hemoglobin Concent 35.0 Red Cell Distribution Width 13.9 Platelet Count 198 Mean Platelet Volume 9.6 Neutrophils (%) (Auto) 66.7 Lymphocytes (%) (Auto) 19.1 Monocytes (%) (Auto) 6.7 Eosinophils (%) (Auto) 6.5 Basophils (%) (Auto) 1.0 Neutrophils # (Auto) 6.0 Lymphocytes # (Auto) 1.7 Monocytes # (Auto) 0.6 Eosinophils # (Auto) 0.6 Basophils # (Auto) 0.1 CBC Comment DIFF FINAL Differential Comment Blood Urea Nitrogen 28 Creatinine 1.55 Random Glucose 169 Calcium Level 9.1 Sodium Level 139 Potassium Level 4.3 Chloride Level 107 Carbon Dioxide Level 24.7 Anion Gap 7 Estimat Glomerular Filtration Rate 46 Total Creatine Kinase 101 Creatine Kinase MB 3.2 Troponin I LESS THAN 0.02 Result Diagram: 08/28/17 1035 08/28/17 1035 Imaging Last Impressions Chest X-Ray 08/28/17 1037 Signed Impressions: Service Date/Time: Monday, August 28, 2017 10:53 - CONCLUSION: Stable cardiomegaly. The lungs are clear. MD Chichi Andrew VTE Risk Assessment Caprini VTE Risk Assessment: Mod/High Risk (score >= 2) Caprini Risk Assessment Model Point Value = 1 Point Value = 2 Point Value = 3 Point Value = 5 Age 41-60 Minor surgery BMI > 25 kg/m2 Swollen legs Varicose veins or History of unexplained or recurrent spontaneous Oral contraceptives or hormone replacement Sepsis (< 1 month) Serious lung disease, including pneumonia (< 1 month) Abnormal pulmonary function Acute myocardial infarction Congestive heart failure (< 1 month) History of inflammatory bowel disease Medical patient at bed rest Age 61-74 Arthroscopic surgery Major open surgery (> 45 min) Laparoscopic surgery (> 45 min) Malignancy Confined to bed (> 72 hours) Immobilizing plaster cast Central venous access Age >= 75 History of VTE Family history of VTE Factor V Leiden Prothrombin [id number] Lupus anticoagulant Anticardiolipin antibodies Elevated serum homocysteine Heparin-induced thrombocytopenia Other congenital or acquired thrombophilia Stroke (< 1 month) Elective arthroplasty Hip, pelvis, or leg fracture Acute spinal cord injury (< 1 month) Prophylaxis Regimen Total Risk Factor Score Risk Level Prophylaxis Regimen 0-1 Low Early ambulation 2 Moderate Order ONE of the following: *Sequential Compression Device (SCD) *Heparin 5000 units SQ BID 3-4 Higher Order ONE of the following medications: *Heparin 5000 units SQ TID *Enoxaparin/Lovenox 40 mg SQ daily (WT < 150 kg, CrCl > 30 mL/min) *Enoxaparin/Lovenox 30 mg SQ daily (WT < 150 kg, CrCl > 10-29 mL/min) *Enoxaparin/Lovenox 30 mg SQ BID (WT < 150 kg, CrCl > 30 mL/min) AND/OR *Sequential Compression Device (SCD) 5 or more Highest Order ONE of the following medications: *Heparin 5000 units SQ TID (Preferred with Epidurals) *Enoxaparin/Lovenox 40 mg SQ daily (WT < 150 kg, CrCl > 30 mL/min) *Enoxaparin/Lovenox 30 mg SQ daily (WT < 150 kg, CrCl > 10-29 mL/min) *Enoxaparin/Lovenox 30 mg SQ BID (WT < 150 kg, CrCl > 30 mL/min) AND *Sequential Compression Device (SCD) Assessment and Plan Problem List: (1) Chest pain ICD Code: R07.9 - Chest pain, unspecified Assessment and Plan This is a 57-year-old male who presents to the emergency department complaining of chest pain and back pain associated with diaphoresis, shortness of breath and nausea Chest and back pain with history of CAD status post TN status post stents. Rule out ACS. CXR image interpreted by me with no acute cardiopulmonary disease. EKG tracing with ventricular pacing. Patient will be admitted. Trend cardiac enzymes. Aspirin 1 then daily, continue Plavix, Coreg and start Nitropaste. Pain management with Lortab and IV morphine. Will also obtain CTA to rule out aortic dissection and check lipase and liver function test. Cardiology will also be consulted. Cardiomyopathy status post AICD last ejection fraction 35% on Entresto, Coreg, Lasix and Aldactone. Compensated continue home medications A. fib status post pacemaker on Coreg and Eliquis. Stable Chronic kidney disease stage II-III. Nonoliguric. Will gently hydrate for 1 L after CTA. Avoid nephrotoxins Hyperlipidemia, diabetes mellitus with neuropathy, hypertension, obesity, skin cancer, anxiety and depression. Continue outpatient medications as appropriate DVT prophylaxis with SCD and Eliquis (currently on hold may be switched to heparin drip pending CTA and discussion with cardiology) Discussed Condition With pt Niko Mckenzie MD Aug 28, 2017 14:34
[2017-08-28] MEDS ORDERED: ALBUTEROL SULFATE 90 MCG/ACT HFA 8 GM INHALER INH PRN (15:00)
--- NOTE | 2017-08-28 15:25 | RADRPT ---
EXAM DATE/TIME: 08/28/2017 14:47 [facility] COMPARISON: CT ABDOMEN & PELVIS W/O CONTRAST, May 02, 2016, 13:35. INDICATIONS : Evaluate for Aortic Dissection, chest pain, shortness of breath, nausea. IV CONTRAST: 94 cc Omnipaque 350 (iohexol) IV RADIATION DOSE: 17.13 CTDIvol (mGy) MEDICAL HISTORY : Cardiovascular disease. Hypertension. Diabetes, skin cancer. SURGICAL HISTORY : Pacemaker. ENCOUNTER: Initial ACUITY: 1 day PAIN SCALE: 10/10 LOCATION: chest TECHNIQUE: Volumetric scanning was performed using a multi-row detector CT scanner. The data was post processed with a variety of visualization algorithms including full volume maximum intensity projection, multi -planar sliding thin slab reformation, curved planar reformation, and surface rendering techniques. Using automated exposure control and adjustment of the mA and/or kV according to patient size, radiat ion dose was kept as low as reasonably achievable to obtain optimal diagnostic quality images. DICOM format image data is available electronically for review and comparison. FINDINGS: Thoracic aorta: The aortic root and ascending aorta are normal in caliber. Maximum dimension of the ascending aorta i s 3.9 cm. There is normal anatomic branching of the great vessels from the arch. The origins of the g reat vessels are widely patent. The arch is normal in caliber. The descending thoracic aorta is lawanda l in caliber. Maximum dimension of the descending thoracic aorta is 2.6 cm. There is no evidence of d issection. Abdominal aorta: There is an anatomic variant with a separate origin of the splenic and hepatic arteries. They're wide ly patent. The SMA is widely patent. The renal arteries are widely patent bilaterally. The infrarenal aorta is normal in caliber measuring 1.8 cm. There is no evidence of dissection. The MADALYN is patent. Pelvis: The common iliac, internal iliac and external iliac arteries are widely patent. There is no evidence of dissection. CT source data: The pulmonary parenchyma is clear. The heart is enlarged. There are old, calcified nodes in the right ambreen. The appearance of the liver, spleen, pancreas, adrenal glands and right kidney is within lawanda l limits. Note is made of a 3.7 x 2.1 cm cystic lesion within the left kidney. This measures an avera ge of 40 Hounsfield units. This is incompletely assessed by this CTA. I would recommend an MRI evalua tion for more definitive assessment of this lesion. The gallbladder appears mildly distended. No free air is seen. There is no free fluid. No retroperitoneal adenopathy is present. There is no free flui d within the pelvis.. CONCLUSION: 1. No evidence of dissection of the thoracic or abdominal aorta. 2. Cardiomegaly. 3. Old calcified granulomatous nodes within the right ambreen and 2 small calcified granuloma at the rig ht lung base. 4. Mildly distended gallbladder. 5. 3.7 x 2.1 cm cystic lesion within the left kidney this is incompletely evaluated. It measures 40 H ounsfield units which is somewhat more than expected. MRI imaging at some point without and with cont rast for more definitive assessment of this abnormality is warranted. Maximino Loving MD on August 28, 2017 at 15:12 Board Certified Radiologist. This report was verified electronically.
[2017-08-28] MEDS ORDERED: SODIUM CHLOR 0.9% 1000 ML INJ 1,000 ML IV SCH (16:00)
[2017-08-28] MEDS: MORPHINE SULFATE 2 MG/ML SYRINGE IV PUSH PRN ×2 (16:03→20:37)
--- NOTE | 2017-08-28 16:27 | MB ---
cc: Jorden Belcher MD DATE: 08/28/2017 HISTORY OF PRESENT ILLNESS: Mr. Shah is a 57-year-old white male, a patient of Dr. Vincent, with a history of coronary artery disease, myocardial infarction, ischemic cardiomyopathy with moderate left ventricular systolic dysfunction, biventricular defibrillator and atrial fibrillation. After he had a large Easter dinner last night, he developed sharp pain between the shoulder blades. He subsequently developed mid upper abdominal discomfort, which lasted through the night. This morning, he developed chest burning associated with diaphoresis, shortness of breath and nausea. He still has some mild back and chest discomfort. He has a previous history of coronary disease and coronary stenting to the LAD. CT angiogram showed no evidence of aortic dissection. PAST MEDICAL HISTORY: Positive for coronary artery disease as above, GI bleed, chronic systolic congestive heart failure, hepatitis C, elevated liver function tests, biventricular defibrillator, dyslipidemia, persistent atrial fibrillation. The patient was seen in Dr. Vincent's office last time on 07/17. He was offered a stress test, but declined to proceed at the time. MEDICATIONS: Include gabapentin, Symbicort, Eliquis 2.5 mg twice a day, pantoprazole, carvedilol 25 mg twice a day, furosemide, spironolactone, Tresiba, Entresto, Plavix, Proventil. ALLERGIES: PENICILLIN. SOCIAL HISTORY: The patient does not smoke. He drinks alcohol socially. FAMILY HISTORY: Positive for heart disease in his father. REVIEW OF SYSTEMS: Otherwise negative. PHYSICAL EXAMINATION: VITAL SIGNS: Blood pressure 121/78, pulse 80 and regular. HEENT: Negative. NECK: 2+ carotid upstrokes, no bruits. LUNGS: Clear. HEART: Regular with no murmur or gallop. ABDOMEN: Soft. No bruits. EXTREMITIES: Mild edema, 1+ distal pulses. NEUROLOGIC: Grossly nonfocal. CHEST: Left upper chest ICD site is stable. DIAGNOSTIC DATA: EKG was reviewed and showed atrial fibrillation and ventricular pacing. DIAGNOSES: 1. Chest pain. 2. Back pain. 3. Abdominal pain. 4. Coronary artery disease, history of myocardial infarction. 5. Ischemic cardiomyopathy with moderate left ventricular systolic dysfunction. 6. Chronic atrial fibrillation. 7. History of [place] biventricular implantable cardioverter-defibrillator placement. 8. Chronic kidney disease. 9. Dyslipidemia. DISPOSITION: Mr. hSah will be monitored on telemetry. We will obtain serial enzymes and EKGs. We will continue his current medical program for congestive heart failure. We will continue aggressive modification of his cardiac risk factors. I will follow him for cardiology during his hospitalization. He will undergo GI evaluation as well. He will follow up with Dr. Vincent, his primary cook soup, in his office after discharge. MD MALGORZATA Bhatia/MAIKOL , 03:54 PM , 04:26 PM AMINA
[2017-08-28 16:31] LABS: ALBUMIN 3.5 GM/DL (3.4-5.0); DIRECT BILIRUBIN ADULT 0.1 MG/DL (0.0-0.2); INDIRECT BILIRUBIN 0.4 MG/DL (0.0-0.8); TOTAL BILIRUBIN ADULT 0.5 MG/DL (0.2-1.0); TOTAL PROTEIN 7.7 GM/DL (6.4-8.2)
[2017-08-28] MEDS ORDERED: ASPIRIN 325 MG TAB PO ONE (17:00)
[2017-08-28 18:09] LABS: TROPONIN I LESS THAN 0.02 NG/ML (0.02-0.05)
[2017-08-28] MEDS: SPIRONOLACTONE 25 MG TAB PO SCH (18:13)
[2017-08-28] MEDS: INSULIN ASPART SUPPLEMENTAL SCALE SQ SCH ×2 (18:14→21:00)
[2017-08-28] MEDS: ACETAMINOPHEN/HYDROcodone 325 MG/7.5 MG TAB PO PRN (18:14)
[2017-08-28] MEDS: GABAPENTIN 100 MG CAP PO SCH (20:35)
[2017-08-28] MEDS: DOCUSATE SODIUM 50 MG/SENNA 8.6 MG TAB PO SCH (20:36)
[2017-08-28] MEDS: CALCIUM CARBONATE 500 MG CHEWABLE TAB CHEW PRN (20:36)
[2017-08-28] MEDS: CARVEDILOL 12.5 MG TAB PO SCH (20:36)
[2017-08-28] MEDS: FUROSEMIDE 40 MG TAB PO SCH (20:36)
[2017-08-28] MEDS ORDERED: GABAPENTIN 400 MG CAP PO SCH (21:00)
[2017-08-29] VITALS (12 sets, daily range): BP systolic 93–123; BP diastolic 59–77; PULSE 60–97; RESP 18–21; TEMP 97.5–99.4; O2SAT 93–96
[2017-08-29] MEDS: ACETAMINOPHEN/HYDROcodone 325 MG/7.5 MG TAB PO PRN ×4 (00:06→21:56)
[2017-08-29] MEDS: SACUBITRIL/VALSARTAN 24 MG-26 MG TAB PO SCH ×3 (00:51→21:56)
[2017-08-29] MEDS: BUDESONIDE-FORMOTEROL 160/4.5 MCG INHALER INH SCH ×3 (00:52→21:56)
[2017-08-29 02:33] LABS: TROPONIN I LESS THAN 0.02 NG/ML (0.02-0.05)
[2017-08-29 06:53] LABS: AUTOMATED NEUTROPHIL # 8.3 TH/MM3 (1.8-7.7); BASOPHIL # 0.1 TH/MM3 (0-0.2); BASOPHIL % 0.5 % (0.0-2.0); EOSINOPHIL # 0.4 TH/MM3 (0-0.4); HEMATOCRIT 39.3 % (39.0-51.0); HEMOGLOBIN 13.6 GM/DL (13.0-17.0); LYMPH % 16.7 % (9.0-44.0); MEAN CELL VOLUME 97.9 FL (80.0-100.0); MEAN CORPUSCULAR HEMOGLOBIN 33.8 PG (27.0-34.0); MEAN CORPUSCULAR HGB CONC 34.5 % (32.0-36.0); MONO % 10.1 % (0.0-8.0); MONOCYTE # 1.2 TH/MM3 (0-0.9); NEUT % 69.7 % (16.0-70.0); PLATELET COUNT 166 TH/MM3 (150-450); RED BLOOD COUNT 4.01 MIL/MM3 (4.50-5.90); RED CELL DISTRIBUTION WIDTH 13.9 % (11.6-17.2); WHITE BLOOD COUNT 11.9 TH/MM3 (4.0-11.0)
[2017-08-29 07:15] LABS: BICARBONATE 25.7 MEQ/L (21.0-32.0); CALCIUM 8.9 MG/DL (8.5-10.1); CREATININE 1.16 MG/DL (0.60-1.30)
[2017-08-29] MEDS: CALCIUM CARBONATE 500 MG CHEWABLE TAB CHEW PRN (07:25)
[2017-08-29] MEDS: MORPHINE SULFATE 2 MG/ML SYRINGE IV PUSH PRN ×2 (07:25→16:47)
[2017-08-29] MEDS: INSULIN ASPART SUPPLEMENTAL SCALE SQ SCH ×4 (07:54→21:00)
[2017-08-29] MEDS: CARVEDILOL 12.5 MG TAB PO SCH ×2 (08:32→21:56)
[2017-08-29] MEDS: SPIRONOLACTONE 25 MG TAB PO SCH ×3 (08:32→17:07)
[2017-08-29] MEDS: DOCUSATE SODIUM 50 MG/SENNA 8.6 MG TAB PO SCH ×2 (08:32→21:56)
[2017-08-29] MEDS: PANTOPRAZOLE SOD 40 MG DELAYED RELEASE TAB PO SCH (08:32)
[2017-08-29] MEDS: FUROSEMIDE 40 MG TAB PO SCH ×2 (08:32→21:56)
[2017-08-29] MEDS ORDERED: [UNRECOGNIZED DRUG - OTHER] SQ SCH (09:00)
[2017-08-29] MEDS ORDERED: INSULIN DEGLUDEC 30 UNIT SQ SCH (09:00)
[2017-08-29] MEDS ORDERED: CLOPIDOGREL 75 MG TAB PO SCH (09:00)
[2017-08-29] MEDS ORDERED: ASPIRIN 325 MG TAB PO SCH (09:00)
[2017-08-29] MEDS ORDERED: INSULIN DEGLUDEC 34 UNIT SQ SCH (09:00)
[2017-08-29] MEDS ORDERED: INSULIN DEGLUDEC SQ SCH (09:00)
--- NOTE | 2017-08-29 13:35 | HHI.PR ---
Subjective Remarks Follow-up chest, back and abdominal pain. States continues to have upper abdominal pain. Discussed with general surgery plans to take patient to the operating room tomorrow. Discussed with cardiology he has been cleared for surgery Objective Vitals Vital Signs Date Time Temp Pulse Resp B/P (MAP) Pulse Ox O2 Delivery O2 Flow Rate FiO2 08/29/17 08:00 98.3 61 20 119/71 (87) 95 08/29/17 07:42 89 08/29/17 04:00 98.9 89 21 106/59 (75) 93 08/29/17 00:31 92 08/29/17 00:00 99.4 65 21 123/77 (92) 96 08/28/17 20:33 97.9 83 20 142/84 (103) 93 08/28/17 20:01 97 08/28/17 17:31 08/28/17 17:05 97.5 85 18 127/83 (98) 97 08/28/17 16:02 80 18 123/75 (91) 99 Room Air I/O 08/28/17 08/28/17 08/28/17 08/29/17 08/29/17 08/29/17 07:00 15:00 23:00 07:00 15:00 23:00 Intake Total 1000 ml Output Total 400 ml Balance -400 ml 1000 ml Intake IV Total 1000 ml Output Urine Total 400 ml # Voids 2 # Bowel Movements 0 Result Diagram: 08/29/17 0545 08/29/17 0545 Imaging Last Impressions Chest X-Ray 08/28/17 1037 Signed Impressions: Service Date/Time: Monday, August 28, 2017 10:53 - CONCLUSION: Stable cardiomegaly. The lungs are clear. Tl Taylor MD Aorta CTA 08/28/17 0000 Signed Impressions: Service Date/Time: Monday, August 28, 2017 14:47 - CONCLUSION: 1. No evidence of dissection of the thoracic or abdominal aorta. 2. Cardiomegaly. 3. Old calcified granulomatous nodes within the right ambreen and 2 small calcified granuloma at the right lung base. 4. Mildly distended gallbladder. 5. 3.7 x 2.1 cm cystic lesion within the left kidney this is incompletely evaluated. It measures 40 Hounsfield units which is somewhat more than expected. MRI imaging at some point without and with contrast for more definitive assessment of this abnormality is warranted. Maximino Loving MD Objective Remarks GENERAL: This is an obese, well-developed patient, in no apparent distress. SKIN: No rashes, ecchymoses or lesions. Cool and dry. CARDIOVASCULAR: Regular rate and rhythm without murmurs, gallops, or rubs. Tender chest wall RESPIRATORY: Clear to auscultation. Breath sounds equal bilaterally. No wheezes , rales, or rhonchi. GASTROINTESTINAL: Abdomen soft, obese tender epigastric and right upper quadrant. No guarding. MUSCULOSKELETAL: Extremities without clubbing, cyanosis, or edema. No joint tenderness, effusion, or edema noted. No calf tenderness. Negative Homans sign bilaterally. Tender lower thoracic spine with no swelling or redness NEUROLOGICAL: Awake and alert. Cranial nerves II through XII intact. Motor and sensory grossly within normal limits. Five out of 5 muscle strength in all muscle groups. Normal speech. A/P Problem List: (1) Chest pain ICD Code: R07.9 - Chest pain, unspecified Assessment and Plan This is a 57-year-old male who presents to the emergency department complaining of chest pain and back pain associated with diaphoresis, shortness of breath and nausea Chest, back pain and abd pain with history of CAD status post KS status post stents. CXR image interpreted by me with no acute cardiopulmonary disease. EKG tracing with ventricular pacing. Patient ruled out for KS discussed with cardiology, consider other etiologies. Ordered HIDA scan which was abnormal suggestive of acute cholecystitis consulted general surgery who plans to take patient to the operating room tomorrow awaiting washout of Eliquis. Patient has been cleared for surgery by cardiology see progress notes. Continue Plavix , Coreg and start Nitropaste. Pain management with Lortab and IV morphine. CTA no evidence of aortic dissection. Lipase within normal limits with mildly abnormal liver function test. Cardiomyopathy status post AICD last ejection fraction 35% on Entresto, Coreg, Lasix and Aldactone. Compensated continue home medications A. fib status post pacemaker on Coreg and Eliquis (currently on hold will start Lovenox if okay with general surgery). Stable Chronic kidney disease stage II-III. Nonoliguric. Improved after IV hydration. Avoid nephrotoxins Hyperlipidemia, diabetes mellitus with neuropathy, hypertension, obesity, skin cancer, anxiety and depression. Continue outpatient medications as appropriate DVT prophylaxis with SCD and Eliquis (currently on hold see above) Niko Mckenzie MD Aug 29, 2017 13:35
--- NOTE | 2017-08-29 13:54 | RADRPT ---
EXAM DATE/TIME: 08/29/2017 10:56 This report includes an Addendum and supersedes previous reports for this exam. [facility] COMPARISON: No previous studies available for comparison. INDICATIONS : Abdominal pain. DOSE: 4.3 mCi Tc99m Mebrofenin IV MEDICAL HISTORY : Myocardial infarction. Diabetes mellitus type 2. Carcinoma, basal cell. SURGICAL HISTORY : Coronary artery stent. Pacemaker. ENCOUNTER: Initial ACUITY: 1 day PAIN SCALE: 2/10 LOCATION: Right upper quadrant TECHNIQUE: Following the intravenous administration of radiotracer, dynamic sequential images were performed wit h continuous acquisition. FINDINGS: HEPATIC KINETICS: There is prompt uptake of radiotracer in the liver. No focal defects are seen. There is normal rate of washout from the hepatic parenchyma. BILIARY CLEARANCE: Activity is first seen in the extrahepatic biliary system at 15 minutes. There is normal excretion i nto the small bowel. GALLBLADDER: No gallbladder filling demonstrated. BILIARY ENTRIC REFLUX: None observed. CONCLUSION: Nonfilling of the gallbladder through 120 minutes and is of concern for cholecystitis/cystic duct obs truction in the proper clinical setting. No obstruction of the common bile duct. We will plan on doin g delayed images. Conor Bird MD on August 29, 2017 at 13:50 Board Certified Radiologist. This report was verified electronically. ADDENDUM: COMPARISON: CTA THORACIC ABDOMINAL AORTA W 3D RECON, August 28, 2017, 14:47. Delayed imaging was performed 24 hours. Is no activity seen within the gallbladder. Excreted activi ty is present in the colon. The absence of gallbladder activity at 24 hours increases the concern fo r cystic duct obstruction/acute cholecystitis. Tl Taylor MD on August 30, 2017 at 12:18 Board Certified Radiologist. This report was verified electronically.
[2017-08-29] MEDS ORDERED: ENOXAPARIN SODIUM 150 MG/ML SYRINGE SQ SCH (14:30)
--- NOTE | 2017-08-29 15:38 | EKG ---
Date Performed: 08/28/2017 Time Performed: 10:28:18 PTAGE: 57 years EKG: Electronic ventricular pacemaker ELECTRONIC VENTRICULAR PACEMAKER -- CONTOUR ANALYSIS BASED ON INTRINSIC RHYTHM MARKED LEFT AXIS DEVIATION LEFT BUNDLE BRANCH BLOCK ABNORMAL ECG INTERPRETATION BASED ON A DEFAULT AGE OF 40 YEARS PREVIOUS TRACING : 08/28/2017 10.27 Since the previous tracing, no significant change not ed DOCTOR: Rambo Blanco Interpretating Date/Time 08/29/2017 15:37:03
[2017-08-29] MEDS: INSULIN DETEMIR 100 UNITS/ML VIAL SQ SCH (15:40)
--- NOTE | 2017-08-29 15:41 | EKG ---
Date Performed: 08/28/2017 Time Performed: 21:48:34 PTAGE: 57 years EKG: ATRIAL FLUTTER/TACHYCARDIA WITH ABERRANT CONDUCTION OR VENTRICULAR PREMATURE COMPLEXES INTR AVENTRICULAR CONDUCTION DELAY LATERAL MYOCARDIAL INFARCTION , OF INDETERMINATE AGE INFERIOR MYOCARDIA L INFARCTION , PROBABLY OLD ABNORMAL ECG PREVIOUS TRACING : 08/28/2017 10.28 Loss of R-wave in now seen in V5 and V6. Clinical correlati on is recommended. May represent lead placement. DOCTOR: Rambo Blanco Interpretating Date/Time 08/29/2017 15:40:36
--- NOTE | 2017-08-29 16:36 | PD.CONS ---
cc: Jeff Sidhu MD [facility] Service General Surgery Consult Requested By Dr. Mckenzie Reason for Consult Cholecystitis Primary Care Physician Wendi Sarabia, DO History of Present Illness This is a 57 year old male with an extensive past medical history of CAD s/p 4 stents placed in 2010, AICD placement in 2014, cardiomyopathy, atrial fibrillation on Eliquis, chronic kidney disease, dyslipidemia, diabetes mellitus , hypertension, obesity, depression and anxiety. The patient came to the ED on Monday with complaints of chest pain. He reports he had a very large meal on and developed chest pain after that. He describes the pain and sharp that radiates to the shoulders to the middle of his back. He describes the pain as similar to his heart attack pain he has experienced in the past. He took Tylenol at home without relief. After arrival he started to complain of RUQ, LUQ with epigastric pain. A HIDA scan was obtained which shows nonfilling of the gallbladder that is consistent with cholecystitis. The patient does an elevated WBC. His liver enzymes are not in the trend of a common bile duct stone. A General Surgery consultation has been requested. Review of Systems Constitutional: DENIES: Fatigue, Dizziness, Change in appetite Endocrine: DENIES: Polydipsia, Polyuria, Polyphagia Eyes: DENIES: Diplopia, Eye inflammation Ears, nose, mouth, throat: DENIES: Hearing loss Respiratory: DENIES: Apneas, Cough Cardiovascular: COMPLAINS OF: Chest pain Gastrointestinal: COMPLAINS OF: Abdominal pain, DENIES: Nausea, Vomiting Genitourinary: DENIES: Urgency Musculoskeletal: DENIES: Joint pain Integumentary: DENIES: Abnormal pigmentation Hematologic/lymphatic: DENIES: Bruising Immunologic/allergic: DENIES: Eczema Neurologic: DENIES: Headache, Localized weakness Psychiatric: DENIES: Confusion, Mood changes Past Family Social History Past Medical History CAD with stent placement on Plavix Cardiomyopathy Atrial fibrillation on Eliquis Chronic kidney disease Diabetes mellitus on insulin Hypertension Obesity Depression/Anxiety Past Surgical History AICD Foot surgery Reported Medications List is extensive but note the patient does take Plavix and Eliquis Allergies: Coded Allergies: penicillin G (Unverified Allergy, Severe, unknown childhood rxn, 08/28/17) Active Ordered Medications Current Medications Medications (Trade) Dose Ordered Sig/Edwina Route Start Time Stop Time Status Last Admin (Aspirin) 325 mg DAILY PO 08/29/17 09:00 08/29/17 08:32 (Nitrostat Sl) 0.4 mg Q5M PRN SL 08/28/17 14:15 (Tums Chew) 500 mg Q6H PRN CHEW 08/28/17 14:15 08/29/17 07:25 (Proair Hfa Inh) 2 puff BID PRN INH 08/28/17 15:00 (Coreg) 25 mg BID PO 08/28/17 21:00 08/29/17 08:32 (Plavix) 75 mg DAILY PO 08/29/17 09:00 08/29/17 08:32 (Lasix) 40 mg BID PO 08/28/17 21:00 08/29/17 08:32 (Protonix) 40 mg DAILY PO 08/29/17 09:00 08/29/17 08:32 (Entresto 24-26 Mg) 1 tab BID PO 08/28/17 21:00 08/29/17 08:59 (Aldactone) 25 mg TID PO 08/28/17 18:00 08/29/17 14:07 (Tylenol) 650 mg Q4H PRN PO 08/28/17 14:30 (Zofran Inj) 4 mg Q6H PRN IVP 08/28/17 14:30 (Tylenol) 650 mg Q6H PRN PO 08/28/17 14:30 ([place] 5-325 Mg) 1 tab Q4H PRN PO 08/28/17 14:30 ([place] 7.5-325 Mg) 1 tab Q4H PRN PO 08/28/17 14:30 08/29/17 14:07 (Morphine Inj) 1 mg Q3H PRN IV PUSH 08/28/17 14:30 08/29/17 07:25 (Narcan Inj) 0.4 mg UNSCH PRN IV PUSH 08/28/17 14:30 (Shabnam-Colace) 1 tab BID PO 08/28/17 21:00 08/29/17 08:32 (Senokot) 17.2 mg Q12H PRN PO 08/28/17 14:30 (Dulcolax Supp) 10 mg DAILY PRN RECTAL 08/28/17 14:30 (Lactulose Liq) 30 ml DAILY PRN PO 08/28/17 14:30 (D50w (Vial) Inj) 50 ml UNSCH PRN IV PUSH 08/28/17 14:30 (Glucagon Inj) 1 mg UNSCH PRN OTHER 08/28/17 14:30 (NovoLOG SUPPLEMENTAL SCALE) 1 ACHS SLIDING SCALE SQ 08/28/17 17:00 08/28/17 18:14 Patient Own Medication PT OWN MED: TRESIBA FLEXTO... DAILY SQ 08/29/17 09:00 Future Hold (Symbicort 160-4.5 Mcg Inh) 2 puff Q12HR INH 08/28/17 21:00 08/29/17 08:40 (Neurontin) 100 mg HS PO 08/28/17 21:00 08/28/17 20:35 (Levemir Inj) 18 units DAILY SQ 08/29/17 14:30 08/29/17 15:40 (Lovenox Inj) 150 mg Q12H SQ 08/29/17 14:30 Future Hold Family History Non contributory Social History Denies tobacco use Occasional ETOH use Occasional marijuana use Physical Exam Vital Signs Vital Signs Date Time Temp Pulse Resp B/P (MAP) Pulse Ox O2 Delivery O2 Flow Rate FiO2 08/29/17 13:45 95 08/29/17 08:00 98.3 61 20 119/71 (87) 95 08/29/17 07:42 89 08/29/17 04:00 98.9 89 21 106/59 (75) 93 08/29/17 00:31 92 08/29/17 00:00 99.4 65 21 123/77 (92) 96 08/28/17 20:33 97.9 83 20 142/84 (103) 93 08/28/17 20:01 97 08/28/17 17:31 08/28/17 17:05 97.5 85 18 127/83 (98) 97 Physical Exam GENERAL: 57 year old male resting in bed in no acute distress. SKIN: Warm and dry. HEAD: Atraumatic. Normocephalic. EYES: Pupils equal and round. No scleral icterus. No injection or drainage. ENT: No nasal bleeding or discharge. Mucous membranes pink and moist. NECK: Trachea midline. CARDIOVASCULAR: Regular rate and rhythm. RESPIRATORY: No accessory muscle use. Clear to auscultation. Breath sounds equal bilaterally. GASTROINTESTINAL: Abdomen soft, non distended; obese. RUQ, LUQ, epigastric tenderness with palpation. MUSCULOSKELETAL: Extremities without clubbing, cyanosis, or edema. No obvious deformities. NEUROLOGICAL: Awake and alert. No obvious cranial nerve deficits. Motor grossly within normal limits. Five out of 5 muscle strength in the arms and legs. Normal speech. PSYCHIATRIC: Appropriate mood and affect; insight and judgment normal. Laboratory Laboratory Tests Test 08/28/17 16:40 08/29/17 01:51 08/29/17 05:45 Total Creatine Kinase 70 56 Troponin I LESS THAN 0.02 LESS THAN 0.02 Lipase 93 White Blood Count 11.9 Red Blood Count 4.01 Hemoglobin 13.6 Hematocrit 39.3 Mean Corpuscular Volume 97.9 Mean Corpuscular Hemoglobin 33.8 Mean Corpuscular Hemoglobin Concent 34.5 Red Cell Distribution Width 13.9 Platelet Count 166 Mean Platelet Volume 10.0 Neutrophils (%) (Auto) 69.7 Lymphocytes (%) (Auto) 16.7 Monocytes (%) (Auto) 10.1 Eosinophils (%) (Auto) 3.0 Basophils (%) (Auto) 0.5 Neutrophils # (Auto) 8.3 Lymphocytes # (Auto) 2.0 Monocytes # (Auto) 1.2 Eosinophils # (Auto) 0.4 Basophils # (Auto) 0.1 CBC Comment DIFF FINAL Differential Comment Blood Urea Nitrogen 21 Creatinine 1.16 Random Glucose 157 Calcium Level 8.9 Sodium Level 138 Potassium Level 3.7 Chloride Level 103 Carbon Dioxide Level 25.7 Anion Gap 9 Estimat Glomerular Filtration Rate 64 Result Diagram: 08/29/17 0545 08/29/17 0545 Imaging Last 48 hours Impressions Hepatobiliary Scan Nuclear Medicine 08/29/17 0000 Signed Impressions: Service Date/Time: Tuesday, August 29, 2017 10:56 - CONCLUSION: Nonfilling of the gallbladder through 120 minutes and is of concern for cholecystitis/cystic duct obstruction in the proper clinical setting. No obstruction of the common bile duct. We will plan on doing delayed images. Conor Bird MD Chest X-Ray 08/28/17 1037 Signed Impressions: Service Date/Time: Monday, August 28, 2017 10:53 - CONCLUSION: Stable cardiomegaly. The lungs are clear. Tl Taylor MD Aorta CTA 08/28/17 0000 Signed Impressions: Service Date/Time: Monday, August 28, 2017 14:47 - CONCLUSION: 1. No evidence of dissection of the thoracic or abdominal aorta. 2. Cardiomegaly. 3. Old calcified granulomatous nodes within the right ambreen and 2 small calcified granuloma at the right lung base. 4. Mildly distended gallbladder. 5. 3.7 x 2.1 cm cystic lesion within the left kidney this is incompletely evaluated. It measures 40 Hounsfield units which is somewhat more than expected. MRI imaging at some point without and with contrast for more definitive assessment of this abnormality is warranted. Maximino Loving MD Assessment and Plan Assessment and Plan 57 year old male with cholecystitis -Added Cipro/Flagyl -Clear liquids -Put Plavix and aspirin on hold -Will plan for surgery on Monday to decrease bleeding risk of surgery -Discussed surgery -Thank you for this consult; We will continue to follow Discussed Condition With Dr. Thea Shah Attending Statement I personally evaluated this patient and his bedside room 1412. Upon my arrival the patient was awake and alert and appeared very comfortable. He was in no acute distress. His abdomen is large protuberant yet soft. He has some mild tenderness to palpation in the right subcostal area. He has no obvious scars or hernias. His CTA was evaluated which does show a large distended gallbladder without pericholecystic inflammatory changes. His HIDA scan to this point shows nonvisualization of the gallbladder which would be consistent with acute cholecystitis. He indicates that he has taken his blood thinning medication Eliquis I believe, up until yesterday morning. He also has been on Plavix and according to the medical chart aspirin. The patient denies taking any aspirin but does admit to being on the Eliquis and the Plavix. Our recommendations are for antibiotic therapy and delay of surgery until Monday of this week to allow the Eliquis Plavix and possibly aspirin to get out of his system and decrease his risk of a bleeding complication. I did discuss with him laparoscopic cholecystectomy possible open. The procedure in detail plus risks of bleeding infection injury to liver bile duct or bowel possible open surgery DVT and pulmonary embolus were explained. We will attempt to get his surgery scheduled for Monday. The exam, history, and the medical decision-making described in the above note were completed with the assistance of the mid-level provider. I reviewed and agree with the findings presented. I attest that I had a [id number] encounter with the patient on the same day, and personally performed and documented my assessment and findings in the medical record. Rupinder Jara/First Eddie MACKAY Aug 29, 2017 16:36 Jeff Sidhu MD Aug 29, 2017 18:01
--- NOTE | 2017-08-29 16:52 | PD.CARD.PN ---
Subjective Subjective Remarks No CP, mild back pain, still c/o abdominal pain Objective Medications Current Medications Medications (Trade) Dose Ordered Sig/Edwina Route Start Time Stop Time Status Last Admin (Aspirin) 325 mg DAILY PO 08/29/17 09:00 Future Hold 08/29/17 08:32 (Nitrostat Sl) 0.4 mg Q5M PRN SL 08/28/17 14:15 (Tums Chew) 500 mg Q6H PRN CHEW 08/28/17 14:15 08/29/17 07:25 (Proair Hfa Inh) 2 puff BID PRN INH 08/28/17 15:00 (Coreg) 25 mg BID PO 08/28/17 21:00 08/29/17 08:32 (Plavix) 75 mg DAILY PO 08/29/17 09:00 Future Hold 08/29/17 08:32 (Lasix) 40 mg BID PO 08/28/17 21:00 08/29/17 08:32 (Protonix) 40 mg DAILY PO 08/29/17 09:00 08/29/17 08:32 (Entresto 24-26 Mg) 1 tab BID PO 08/28/17 21:00 08/29/17 08:59 (Aldactone) 25 mg TID PO 08/28/17 18:00 08/29/17 14:07 (Tylenol) 650 mg Q4H PRN PO 08/28/17 14:30 (Zofran Inj) 4 mg Q6H PRN IVP 08/28/17 14:30 (Tylenol) 650 mg Q6H PRN PO 08/28/17 14:30 ([place] 5-325 Mg) 1 tab Q4H PRN PO 08/28/17 14:30 ([place] 7.5-325 Mg) 1 tab Q4H PRN PO 08/28/17 14:30 08/29/17 14:07 (Morphine Inj) 1 mg Q3H PRN IV PUSH 08/28/17 14:30 08/29/17 07:25 (Narcan Inj) 0.4 mg UNSCH PRN IV PUSH 08/28/17 14:30 (Shabnam-Colace) 1 tab BID PO 08/28/17 21:00 08/29/17 08:32 (Senokot) 17.2 mg Q12H PRN PO 08/28/17 14:30 (Dulcolax Supp) 10 mg DAILY PRN RECTAL 08/28/17 14:30 (Lactulose Liq) 30 ml DAILY PRN PO 08/28/17 14:30 (D50w (Vial) Inj) 50 ml UNSCH PRN IV PUSH 08/28/17 14:30 (Glucagon Inj) 1 mg UNSCH PRN OTHER 08/28/17 14:30 (NovoLOG SUPPLEMENTAL SCALE) 1 ACHS SLIDING SCALE SQ 08/28/17 17:00 08/28/17 18:14 Patient Own Medication PT OWN MED: TRESIBA FLEXTO... DAILY SQ 08/29/17 09:00 Future Hold (Symbicort 160-4.5 Mcg Inh) 2 puff Q12HR INH 08/28/17 21:00 08/29/17 08:40 (Neurontin) 100 mg HS PO 08/28/17 21:00 08/28/17 20:35 (Levemir Inj) 18 units DAILY SQ 08/29/17 14:30 08/29/17 15:40 (Lovenox Inj) 150 mg Q12H SQ 08/29/17 14:30 Future Hold Ciprofloxacin/ Dextrose 200 ml @ 200 mls/hr Q12H IV 08/29/17 16:45 UNV Metronidazole 100 ml @ 100 mls/hr Q8H IV 08/29/17 16:45 UNV Vital Signs / I&O Vital Signs Date Time Temp Pulse Resp B/P (MAP) Pulse Ox O2 Delivery O2 Flow Rate FiO2 08/29/17 16:00 97.5 60 18 93/75 (81) 94 08/29/17 13:45 95 08/29/17 08:00 98.3 61 20 119/71 (87) 95 08/29/17 07:42 89 08/29/17 04:00 98.9 89 21 106/59 (75) 93 08/29/17 00:31 92 08/29/17 00:00 99.4 65 21 123/77 (92) 96 08/28/17 20:33 97.9 83 20 142/84 (103) 93 08/28/17 20:01 97 08/28/17 17:31 08/28/17 17:05 97.5 85 18 127/83 (98) 97 I/O 08/28/17 08/28/17 08/28/17 08/29/17 08/29/17 08/29/17 07:00 15:00 23:00 07:00 15:00 23:00 Intake Total 1000 ml Output Total 400 ml Balance -400 ml 1000 ml Intake IV Total 1000 ml Output Urine Total 400 ml # Voids 2 # Bowel Movements 0 Physical Exam GENERAL: In NAD. SKIN: Warm and dry. HEAD: Normocephalic. EYES: No scleral icterus. No injection or drainage. NECK: Supple, trachea midline. No JVD or lymphadenopathy. CARDIOVASCULAR: Regular rate and rhythm without murmurs, gallops, or rubs. RESPIRATORY: Breath sounds equal bilaterally. No accessory muscle use. GASTROINTESTINAL: Abdomen soft, obese, nondistended. MUSCULOSKELETAL: No cyanosis, mild edema. Laboratory Laboratory Tests Test 08/29/17 01:51 08/29/17 05:45 Total Creatine Kinase 56 U/L Troponin I LESS THAN 0.02 NG/ML White Blood Count 11.9 TH/MM3 Red Blood Count 4.01 MIL/MM3 Hemoglobin 13.6 GM/DL Hematocrit 39.3 % Mean Corpuscular Volume 97.9 FL Mean Corpuscular Hemoglobin 33.8 PG Mean Corpuscular Hemoglobin Concent 34.5 % Red Cell Distribution Width 13.9 % Platelet Count 166 TH/MM3 Mean Platelet Volume 10.0 FL Neutrophils (%) (Auto) 69.7 % Lymphocytes (%) (Auto) 16.7 % Monocytes (%) (Auto) 10.1 % Eosinophils (%) (Auto) 3.0 % Basophils (%) (Auto) 0.5 % Neutrophils # (Auto) 8.3 TH/MM3 Lymphocytes # (Auto) 2.0 TH/MM3 Monocytes # (Auto) 1.2 TH/MM3 Eosinophils # (Auto) 0.4 TH/MM3 Basophils # (Auto) 0.1 TH/MM3 CBC Comment DIFF FINAL Differential Comment Blood Urea Nitrogen 21 MG/DL Creatinine 1.16 MG/DL Random Glucose 157 MG/DL Calcium Level 8.9 MG/DL Sodium Level 138 MEQ/L Potassium Level 3.7 MEQ/L Chloride Level 103 MEQ/L Carbon Dioxide Level 25.7 MEQ/L Anion Gap 9 MEQ/L Estimat Glomerular Filtration Rate 64 ML/MIN Imaging Last 24 hours Impressions Hepatobiliary Scan Nuclear Medicine 08/29/17 0000 Signed Impressions: Service Date/Time: Tuesday, August 29, 2017 10:56 - CONCLUSION: Nonfilling of the gallbladder through 120 minutes and is of concern for cholecystitis/cystic duct obstruction in the proper clinical setting. No obstruction of the common bile duct. We will plan on doing delayed images. Conor Bird MD Assessment and Plan Problem List: (1) Chest pain ICD Codes: R07.9 - Chest pain, unspecified (2) Abdominal pain ICD Codes: R10.9 - Unspecified abdominal pain (3) CAD (coronary artery disease) ICD Codes: I25.10 - Atherosclerotic heart disease of redding coronary artery without angina pectoris (4) Ischemic cardiomyopathy ICD Codes: I25.5 - Ischemic cardiomyopathy (5) CHF (congestive heart failure) ICD Codes: I50.9 - Heart failure, unspecified (6) Afib ICD Codes: I48.91 - Unspecified atrial fibrillation Status: Chronic (7) ICD (implantable cardioverter-defibrillator) in place ICD Codes: Z95.810 - Presence of automatic (implantable) cardiac defibrillator Assessment and Plan No evidence of ACS. Troponins negative. Evaluation c/w cholecystitis, surgery planned. The patient is cleared for surgery from cardiac standpoint. His risk of perioperative cardiac complications is increased, but not prohibitive. Proceed with the surgery as planned. Jorden Belcher MD Aug 29, 2017 16:52
--- NOTE | 2017-08-29 17:02 | EKG ---
Date Performed: 08/28/2017 Time Performed: 10:25:55 PTAGE: 57 years EKG: ELECTRONIC VENTRICULAR PACEMAKER MARKED ST ELEVATION, CONSIDER LATERAL INJURY ACUTE CA * Since PREVIOUS TRACING , no significant change noted PREVIOUS TRACIN01/19/2017 05.30.24 DOCTOR: Rambo Blanco Interpretating Date/Time 08/29/2017 17:00:34
[2017-08-29] MEDS ORDERED: NITROGLYCERIN 2% OINT 1 GM PACKET TOP SCH (18:00)
[2017-08-29] MEDS: CIPROFLOXACIN 400 MG PREMIX 200 ML IV SCH (18:28)
[2017-08-29] MEDS: GABAPENTIN 100 MG CAP PO SCH (21:56)
[2017-08-29] MEDS: metroNIDAZOLE 500 MG INJ 100 ML IV SCH (21:57)
[2017-08-30] VITALS (10 sets, daily range): BP systolic 96–135; BP diastolic 53–76; PULSE 79–95; RESP 16–20; TEMP 97.7–100.1; O2SAT 94–96
[2017-08-30] MEDS: metroNIDAZOLE 500 MG INJ 100 ML IV SCH ×3 (05:10→21:02)
[2017-08-30] MEDS: ACETAMINOPHEN/HYDROcodone 325 MG/7.5 MG TAB PO PRN ×5 (05:25→23:13)
[2017-08-30] MEDS: CIPROFLOXACIN 400 MG PREMIX 200 ML IV SCH ×2 (05:57→17:00)
[2017-08-30] MEDS: INSULIN ASPART SUPPLEMENTAL SCALE SQ SCH ×4 (07:19→21:00)
[2017-08-30] MEDS: SACUBITRIL/VALSARTAN 24 MG-26 MG TAB PO SCH ×2 (08:06→20:55)
[2017-08-30] MEDS: DOCUSATE SODIUM 50 MG/SENNA 8.6 MG TAB PO SCH ×2 (08:06→20:59)
[2017-08-30] MEDS: PANTOPRAZOLE SOD 40 MG DELAYED RELEASE TAB PO SCH (08:06)
[2017-08-30] MEDS: FUROSEMIDE 40 MG TAB PO SCH ×2 (08:06→20:55)
[2017-08-30] MEDS: SPIRONOLACTONE 25 MG TAB PO SCH ×3 (08:06→17:00)
[2017-08-30] MEDS: CARVEDILOL 12.5 MG TAB PO SCH ×2 (08:06→20:55)
[2017-08-30] MEDS: BUDESONIDE-FORMOTEROL 160/4.5 MCG INHALER INH SCH ×2 (08:07→20:59)
[2017-08-30] MEDS: INSULIN DETEMIR 100 UNITS/ML VIAL SQ SCH (08:07)
--- NOTE | 2017-08-30 09:01 | PD.CARD.PN ---
Subjective Subjective Remarks Feels better, no CP or SOB Objective Medications Current Medications Medications (Trade) Dose Ordered Sig/Edwina Route Start Time Stop Time Status Last Admin (Aspirin) 325 mg DAILY PO 08/29/17 09:00 Future Hold 08/29/17 08:32 (Nitrostat Sl) 0.4 mg Q5M PRN SL 08/28/17 14:15 (Tums Chew) 500 mg Q6H PRN CHEW 08/28/17 14:15 08/29/17 07:25 (Proair Hfa Inh) 2 puff BID PRN INH 08/28/17 15:00 (Coreg) 25 mg BID PO 08/28/17 21:00 08/30/17 08:06 (Plavix) 75 mg DAILY PO 08/29/17 09:00 Future Hold 08/29/17 08:32 (Lasix) 40 mg BID PO 08/28/17 21:00 08/30/17 08:06 (Protonix) 40 mg DAILY PO 08/29/17 09:00 08/30/17 08:06 (Entresto 24-26 Mg) 1 tab BID PO 08/28/17 21:00 08/30/17 08:06 (Aldactone) 25 mg TID PO 08/28/17 18:00 08/30/17 08:06 (Tylenol) 650 mg Q4H PRN PO 08/28/17 14:30 (Zofran Inj) 4 mg Q6H PRN IVP 08/28/17 14:30 (Tylenol) 650 mg Q6H PRN PO 08/28/17 14:30 ([place] 5-325 Mg) 1 tab Q4H PRN PO 08/28/17 14:30 ([place] 7.5-325 Mg) 1 tab Q4H PRN PO 08/28/17 14:30 08/30/17 05:25 (Morphine Inj) 1 mg Q3H PRN IV PUSH 08/28/17 14:30 08/29/17 16:47 (Narcan Inj) 0.4 mg UNSCH PRN IV PUSH 08/28/17 14:30 (Shabnam-Colace) 1 tab BID PO 08/28/17 21:00 08/30/17 08:06 (Senokot) 17.2 mg Q12H PRN PO 08/28/17 14:30 (Dulcolax Supp) 10 mg DAILY PRN RECTAL 08/28/17 14:30 (Lactulose Liq) 30 ml DAILY PRN PO 08/28/17 14:30 (D50w (Vial) Inj) 50 ml UNSCH PRN IV PUSH 08/28/17 14:30 (Glucagon Inj) 1 mg UNSCH PRN OTHER 08/28/17 14:30 (NovoLOG SUPPLEMENTAL SCALE) 1 ACHS SLIDING SCALE SQ 08/28/17 17:00 08/29/17 17:36 Patient Own Medication PT OWN MED: TRESIBA FLEXTO... DAILY SQ 08/29/17 09:00 Future Hold (Symbicort 160-4.5 Mcg Inh) 2 puff Q12HR INH 08/28/17 21:00 08/30/17 08:07 (Neurontin) 100 mg HS PO 08/28/17 21:00 08/29/17 21:56 (Levemir Inj) 18 units DAILY SQ 08/29/17 14:30 08/30/17 08:07 Ciprofloxacin/ Dextrose 200 ml @ 200 mls/hr Q12H IV 08/29/17 18:00 08/30/17 05:57 Metronidazole 100 ml @ 100 mls/hr Q8H IV 08/29/17 20:00 08/30/17 05:10 (Lovenox Inj) 150 mg Q12H SQ 08/30/17 08:45 UNV Vital Signs / I&O Vital Signs Date Time Temp Pulse Resp B/P (MAP) Pulse Ox O2 Delivery O2 Flow Rate FiO2 08/30/17 08:34 Room Air 08/30/17 04:00 100.1 90 18 118/60 (79) 94 08/30/17 04:00 Room Air 08/30/17 03:57 84 08/30/17 00:00 98.0 84 18 109/72 (84) 94 08/29/17 23:50 86 08/29/17 20:00 98.7 89 18 105/59 (74) 94 08/29/17 19:49 87 08/29/17 16:00 97.5 60 18 93/75 (81) 94 08/29/17 15:45 97 08/29/17 13:45 95 I/O 08/29/17 08/29/17 08/29/17 08/30/174/18 4/4/18 07:00 15:00 23:00 07:00 15:00 23:00 Intake Total 1000 ml 960 ml Output Total 200 ml Balance 1000 ml 960 ml -200 ml Intake Oral 960 ml IV Total 1000 ml Output Urine Total 200 ml # Voids 2 7 # Bowel Movements 0 Physical Exam GENERAL: In NAD. SKIN: Warm and dry. HEAD: Normocephalic. EYES: No scleral icterus. No injection or drainage. NECK: Supple, trachea midline. No JVD or lymphadenopathy. CARDIOVASCULAR: Regular rate and rhythm without murmurs, gallops, or rubs. RESPIRATORY: Breath sounds equal bilaterally. No accessory muscle use. GASTROINTESTINAL: Abdomen soft, obese, nondistended. MUSCULOSKELETAL: No cyanosis, mild edema. Assessment and Plan Problem List: (1) Chest pain ICD Codes: R07.9 - Chest pain, unspecified (2) Abdominal pain ICD Codes: R10.9 - Unspecified abdominal pain (3) CAD (coronary artery disease) ICD Codes: I25.10 - Atherosclerotic heart disease of [place] coronary artery without angina pectoris (4) Ischemic cardiomyopathy ICD Codes: I25.5 - Ischemic cardiomyopathy (5) CHF (congestive heart failure) ICD Codes: I50.9 - Heart failure, unspecified (6) Afib ICD Codes: I48.91 - Unspecified atrial fibrillation Status: Chronic (7) ICD (implantable cardioverter-defibrillator) in place ICD Codes: Z95.810 - Presence of automatic (implantable) cardiac defibrillator Assessment and Plan No angina or CHF. No evidence of ACS. Troponins negative. Evaluation c/w cholecystitis, surgery planned for Fri (now off Eliquis). The patient is cleared for surgery from cardiac standpoint. His risk of perioperative cardiac complications is increased, but not prohibitive. Proceed with the surgery as planned. F/u w Dr. Vincent after discharge. Jorden Belcher MD Aug 30, 2017 09:00
--- NOTE | 2017-08-30 11:04 | HHI.PR ---
Subjective Remarks Follow-up acute cholecystitis. Intermittent abdominal pain relieved with current pain medicine. Discussed with neurosurgery okay to start Lovenox for OR this Monday awaiting wash out of aspirin, Plavix and Eliquis Objective Vitals Vital Signs Date Time Temp Pulse Resp B/P (MAP) Pulse Ox O2 Delivery O2 Flow Rate FiO2 08/30/17 08:34 Room Air 08/30/17 08:00 98.1 95 17 135/76 (95) 95 08/30/17 04:00 100.1 90 18 118/60 (79) 94 08/30/17 04:00 Room Air 08/30/17 03:57 84 08/30/17 00:00 98.0 84 18 109/72 (84) 94 08/29/17 23:50 86 08/29/17 20:00 98.7 89 18 105/59 (74) 94 08/29/17 19:49 87 08/29/17 16:00 97.5 60 18 93/75 (81) 94 08/29/17 15:45 97 08/29/17 13:45 95 I/O 08/29/17 08/29/17 08/29/17 08/30/17 08/30/17 08/30/17 07:00 15:00 23:00 07:00 15:00 23:00 Intake Total 1000 ml 960 ml Output Total 200 ml Balance 1000 ml 960 ml -200 ml Intake Oral 960 ml IV Total 1000 ml Output Urine Total 200 ml # Voids 2 7 # Bowel Movements 0 Result Diagram: 08/29/17 0545 08/29/17 0545 Imaging Last Impressions Hepatobiliary Scan Nuclear Medicine 08/29/17 0000 Signed Impressions: Service Date/Time: Tuesday, August 29, 2017 10:56 - CONCLUSION: Nonfilling of the gallbladder through 120 minutes and is of concern for cholecystitis/cystic duct obstruction in the proper clinical setting. No obstruction of the common bile duct. We will plan on doing delayed images. Conor Bird MD ADDENDUM : COMPARISON: CTA THORACIC ABDOMINAL AORTA W 3D RECON, August 28, 2017, 14:47. Delayed imaging was performed 24 hours. Is no activity seen within the gallbladder. Excreted activity is present in the colon. The absence of gallbladder activity at 24 hours increases the concern for cystic duct obstruction/acute cholecystitis. Tl Taylor MD Chest X-Ray 08/28/17 1037 Signed Impressions: Service Date/Time: Monday, August 28, 2017 10:53 - CONCLUSION: Stable cardiomegaly. The lungs are clear. Tl Taylor MD Aorta CTA 08/28/17 0000 Signed Impressions: Service Date/Time: Monday, August 28, 2017 14:47 - CONCLUSION: 1. No evidence of dissection of the thoracic or abdominal aorta. 2. Cardiomegaly. 3. Old calcified granulomatous nodes within the right ambreen and 2 small calcified granuloma at the right lung base. 4. Mildly distended gallbladder. 5. 3.7 x 2.1 cm cystic lesion within the left kidney this is incompletely evaluated. It measures 40 Hounsfield units which is somewhat more than expected. MRI imaging at some point without and with contrast for more definitive assessment of this abnormality is warranted. Maximino Loving MD Objective Remarks GENERAL: This is an obese, well-developed patient, in no apparent distress. SKIN: No rashes, ecchymoses or lesions. Cool and dry. CARDIOVASCULAR: Regular rate and rhythm without murmurs, gallops, or rubs. Tender chest wall RESPIRATORY: Clear to auscultation. Breath sounds equal bilaterally. No wheezes , rales, or rhonchi. GASTROINTESTINAL: Abdomen soft, obese tender epigastric and right upper quadrant. No guarding. MUSCULOSKELETAL: Extremities without clubbing, cyanosis, or edema. No joint tenderness, effusion, or edema noted. No calf tenderness. Negative Homans sign bilaterally. Tender lower thoracic spine with no swelling or redness NEUROLOGICAL: Awake and alert. Cranial nerves II through XII intact. Motor and sensory grossly within normal limits. Five out of 5 muscle strength in all muscle groups. Normal speech. A/P Problem List: (1) Chest pain ICD Code: R07.9 - Chest pain, unspecified Assessment and Plan This is a 57-year-old male who presents to the emergency department complaining of chest pain and back pain associated with diaphoresis, shortness of breath and nausea Acute cholecystitis. HIDA scan which was abnormal suggestive of acute cholecystitis consulted general surgery who plans to take patient to the operating room this monday awaiting washout of Eliquis, asa and plavix. Patient has been cleared for surgery by cardiology see progress notes. hest, CAD status post IL status post stents. CXR image interpreted by me with no acute cardiopulmonary disease. EKG tracing with ventricular pacing. Patient ruled out for IL discussed with cardiology. CTA no evidence of aortic dissection. Lipase within normal limits with mildly abnormal liver function test. Cleared for surgery by cardiology Cardiomyopathy status post AICD last ejection fraction 35% on Entresto, Coreg, Lasix and Aldactone. Compensated continue home medications A. fib status post pacemaker on Coreg and Eliquis (currently on hold will start Lovenox okayed by general surgery). Stable Chronic kidney disease stage II-III. Nonoliguric. Improved after IV hydration. Avoid nephrotoxins Hyperlipidemia, diabetes mellitus with neuropathy, hypertension, obesity, skin cancer, anxiety and depression. Continue outpatient medications as appropriate DVT prophylaxis with SCD and Lovenox Niko Mckenzie MD Aug 30, 2017 11:04
[2017-08-30] MEDS: ENOXAPARIN SODIUM 150 MG/ML SYRINGE SQ SCH ×2 (12:19→23:17)
--- NOTE | 2017-08-30 12:58 | HHI.PR ---
cc: Jeff Sidhu MD Subjective Subjective Notes Resting in bed No issues Objective Vitals/I&O Vital Signs Date Time Temp Pulse Resp B/P (MAP) Pulse Ox O2 Delivery O2 Flow Rate FiO2 08/30/17 12:00 97.7 85 17 111/65 (80) 96 08/30/17 08:34 Room Air Radiology Last 48 hours Impressions Hepatobiliary Scan Nuclear Medicine 08/29/17 0000 Signed Impressions: Service Date/Time: Tuesday, August 29, 2017 10:56 - CONCLUSION: Nonfilling of the gallbladder through 120 minutes and is of concern for cholecystitis/cystic duct obstruction in the proper clinical setting. No obstruction of the common bile duct. We will plan on doing delayed images. Conor Bird MD Chest X-Ray 08/28/17 1037 Signed Impressions: Service Date/Time: Monday, August 28, 2017 10:53 - CONCLUSION: Stable cardiomegaly. The lungs are clear. Tl Taylor MD Aorta CTA 08/28/17 0000 Signed Impressions: Service Date/Time: Monday, August 28, 2017 14:47 - CONCLUSION: 1. No evidence of dissection of the thoracic or abdominal aorta. 2. Cardiomegaly. 3. Old calcified granulomatous nodes within the right ambreen and 2 small calcified granuloma at the right lung base. 4. Mildly distended gallbladder. 5. 3.7 x 2.1 cm cystic lesion within the left kidney this is incompletely evaluated. It measures 40 Hounsfield units which is somewhat more than expected. MRI imaging at some point without and with contrast for more definitive assessment of this abnormality is warranted. Maximino Lovign MD Cardiovascular: Regular Lungs: Clear Abdomen: Other (RUW tenderness with palpation ) Extremities: No edema A/P Assessment and Plan 57 year old male with acute cholecystitis -Clear liquids; can advance to low fat diet -Lovenox -Continue holding Plavix/ASA/Eliquis -Still on track for lap genet on Monday Rupinder JaraP/[employer] LOG COOKER Aug 30, 2017 12:58
[2017-08-30] MEDS: GABAPENTIN 100 MG CAP PO SCH (20:59)
[2017-08-31] VITALS (13 sets, daily range): BP systolic 92–123; BP diastolic 53–65; PULSE 80–99; RESP 14–20; TEMP 97.4–98.6; O2SAT 93–99
[2017-08-31] MEDS: MORPHINE SULFATE 2 MG/ML SYRINGE IV PUSH PRN ×2 (01:22→22:10)
[2017-08-31] MEDS: metroNIDAZOLE 500 MG INJ 100 ML IV SCH ×3 (04:41→20:19)
[2017-08-31] MEDS: CIPROFLOXACIN 400 MG PREMIX 200 ML IV SCH ×2 (05:47→17:52)
[2017-08-31] MEDS: ACETAMINOPHEN/HYDROcodone 325 MG/7.5 MG TAB PO PRN ×4 (05:49→20:20)
[2017-08-31] MEDS: INSULIN ASPART SUPPLEMENTAL SCALE SQ SCH ×4 (08:00→20:22)
[2017-08-31] MEDS: INSULIN DETEMIR 100 UNITS/ML VIAL SQ SCH (09:00)
[2017-08-31] MEDS: DOCUSATE SODIUM 50 MG/SENNA 8.6 MG TAB PO SCH ×2 (09:08→20:21)
[2017-08-31] MEDS: PANTOPRAZOLE SOD 40 MG DELAYED RELEASE TAB PO SCH (09:08)
[2017-08-31] MEDS: SPIRONOLACTONE 25 MG TAB PO SCH ×3 (09:08→17:52)
[2017-08-31] MEDS: BUDESONIDE-FORMOTEROL 160/4.5 MCG INHALER INH SCH ×2 (09:09→20:22)
[2017-08-31] MEDS: CARVEDILOL 12.5 MG TAB PO SCH ×2 (09:09→20:20)
[2017-08-31] MEDS: FUROSEMIDE 40 MG TAB PO SCH ×2 (09:09→20:21)
--- NOTE | 2017-08-31 10:00 | PD.CARD.PN ---
Subjective Subjective Remarks No CP or SOB, still c/o abd pain Objective Medications Current Medications Medications (Trade) Dose Ordered Sig/Edwina Route Start Time Stop Time Status Last Admin (Aspirin) 325 mg DAILY PO 08/29/17 09:00 Future Hold 08/29/17 08:32 (Nitrostat Sl) 0.4 mg Q5M PRN SL 08/28/17 14:15 (Tums Chew) 500 mg Q6H PRN CHEW 08/28/17 14:15 08/29/17 07:25 (Proair Hfa Inh) 2 puff BID PRN INH 08/28/17 15:00 (Coreg) 25 mg BID PO 08/28/17 21:00 08/31/17 09:09 (Plavix) 75 mg DAILY PO 08/29/17 09:00 Future Hold 08/29/17 08:32 (Lasix) 40 mg BID PO 08/28/17 21:00 08/31/17 09:09 (Protonix) 40 mg DAILY PO 08/29/17 09:00 08/31/17 09:08 (Entresto 24-26 Mg) 1 tab BID PO 08/28/17 21:00 08/30/17 08:06 (Aldactone) 25 mg TID PO 08/28/17 18:00 08/31/17 09:08 (Tylenol) 650 mg Q4H PRN PO 08/28/17 14:30 (Zofran Inj) 4 mg Q6H PRN IVP 08/28/17 14:30 (Tylenol) 650 mg Q6H PRN PO 08/28/17 14:30 ([place] 5-325 Mg) 1 tab Q4H PRN PO 08/28/17 14:30 ([place] 7.5-325 Mg) 1 tab Q4H PRN PO 08/28/17 14:30 08/31/17 05:49 (Morphine Inj) 1 mg Q3H PRN IV PUSH 08/28/17 14:30 08/31/17 01:22 (Narcan Inj) 0.4 mg UNSCH PRN IV PUSH 08/28/17 14:30 (Shabnam-Colace) 1 tab BID PO 08/28/17 21:00 08/31/17 09:08 (Senokot) 17.2 mg Q12H PRN PO 08/28/17 14:30 (Dulcolax Supp) 10 mg DAILY PRN RECTAL 08/28/17 14:30 (Lactulose Liq) 30 ml DAILY PRN PO 08/28/17 14:30 (D50w (Vial) Inj) 50 ml UNSCH PRN IV PUSH 08/28/17 14:30 (Glucagon Inj) 1 mg UNSCH PRN OTHER 08/28/17 14:30 (NovoLOG SUPPLEMENTAL SCALE) 1 ACHS SLIDING SCALE SQ 08/28/17 17:00 08/29/17 17:36 Patient Own Medication PT OWN MED: TRESIBA FLEXTO... DAILY SQ 08/29/17 09:00 Future Hold (Symbicort 160-4.5 Mcg Inh) 2 puff Q12HR INH 08/28/17 21:00 08/31/17 09:09 (Neurontin) 100 mg HS PO 08/28/17 21:00 08/30/17 20:59 (Levemir Inj) 18 units DAILY SQ 08/29/17 14:30 08/31/17 09:00 Ciprofloxacin/ Dextrose 200 ml @ 200 mls/hr Q12H IV 08/29/17 18:00 08/31/17 05:47 Metronidazole 100 ml @ 100 mls/hr Q8H IV 08/29/17 20:00 08/31/17 04:41 (Lovenox Inj) 150 mg Q12H SQ 08/30/17 11:00 08/30/17 23:17 Vital Signs / I&O Vital Signs Date Time Temp Pulse Resp B/P (MAP) Pulse Ox O2 Delivery O2 Flow Rate FiO2 08/31/17 07:48 97.6 85 16 101/57 (72) 98 08/31/17 05:45 98/53 (68) 08/31/17 04:31 97.6 80 14 92/57 (69) 96 08/31/17 04:00 80 08/31/17 00:00 Room Air 08/31/17 00:00 99 08/31/17 00:00 98.6 89 18 110/59 (76) 93 08/30/17 20:00 98.2 91 20 96/59 (71) 96 08/30/17 20:00 90 08/30/17 16:00 98.4 79 16 103/53 (70) 96 08/30/17 15:51 88 4/4/18 12:00 97.7 85 17 111/65 (80) 96 08/30/17 11:58 80 I/O 08/30/17 08/30/17 08/30/17 08/31/17 08/31/17 08/31/17 07:00 15:00 23:00 07:00 15:00 23:00 Intake Total 300 ml 1000 ml 325 ml Output Total 200 ml Balance -200 ml 300 ml 1000 ml 325 ml Intake Oral 1000 ml IV Total 300 ml 325 ml Output Urine Total 200 ml # Voids 3 # Bowel Movements 0 Physical Exam GENERAL: In NAD. SKIN: Warm and dry. HEAD: Normocephalic. EYES: No scleral icterus. No injection or drainage. NECK: Supple, trachea midline. No JVD or lymphadenopathy. CARDIOVASCULAR: Regular rate and rhythm without murmurs, gallops, or rubs. RESPIRATORY: Breath sounds equal bilaterally. No accessory muscle use. GASTROINTESTINAL: Abdomen soft, obese, nondistended. MUSCULOSKELETAL: No cyanosis, mild edema. Assessment and Plan Problem List: (1) Cholecystitis ICD Codes: K81.9 - Cholecystitis, unspecified (2) Chest pain ICD Codes: R07.9 - Chest pain, unspecified (3) Abdominal pain ICD Codes: R10.9 - Unspecified abdominal pain (4) CAD (coronary artery disease) ICD Codes: I25.10 - Atherosclerotic heart disease of [place] coronary artery without angina pectoris (5) Ischemic cardiomyopathy ICD Codes: I25.5 - Ischemic cardiomyopathy (6) CHF (congestive heart failure) ICD Codes: I50.9 - Heart failure, unspecified (7) Afib ICD Codes: I48.91 - Unspecified atrial fibrillation Status: Chronic (8) ICD (implantable cardioverter-defibrillator) in place ICD Codes: Z95.810 - Presence of automatic (implantable) cardiac defibrillator Assessment and Plan Remains stable from cardiac standpoint. No new cardiac issues. No angina or CHF. No evidence of ACS. All troponins negative. Evaluation c/w cholecystitis, surgery planned tomorrow (now off Eliquis). The patient is cleared for surgery from cardiac standpoint. His risk of perioperative cardiac complications is increased, but not prohibitive. Proceed with the surgery as planned. F/u w Dr. Vincent after discharge. Jorden Belcher MD Aug 31, 2017 10:00
[2017-08-31] MEDS: ENOXAPARIN SODIUM 150 MG/ML SYRINGE SQ SCH (10:59)
[2017-08-31] MEDS: SACUBITRIL/VALSARTAN 24 MG-26 MG TAB PO SCH ×2 (11:00→20:20)
--- NOTE | 2017-08-31 14:19 | HHI.PR ---
cc: Jeff Sidhu MD Subjective Subjective Notes Resting in bed No issues Objective Vitals/I&O Vital Signs Date Time Temp Pulse Resp B/P (MAP) Pulse Ox O2 Delivery O2 Flow Rate FiO2 08/31/17 11:59 98.1 82 16 92/59 (70) 99 08/31/17 09:00 Room Air Radiology Last 48 hours Impressions Hepatobiliary Scan Nuclear Medicine 08/29/17 0000 Signed Impressions: Service Date/Time: Tuesday, August 29, 2017 10:56 - CONCLUSION: Nonfilling of the gallbladder through 120 minutes and is of concern for cholecystitis/cystic duct obstruction in the proper clinical setting. No obstruction of the common bile duct. We will plan on doing delayed images. Conor Bird MD Chest X-Ray 08/28/17 1037 Signed Impressions: Service Date/Time: Monday, August 28, 2017 10:53 - CONCLUSION: Stable cardiomegaly. The lungs are clear. Tl Taylor MD Aorta CTA 08/28/17 0000 Signed Impressions: Service Date/Time: Monday, August 28, 2017 14:47 - CONCLUSION: 1. No evidence of dissection of the thoracic or abdominal aorta. 2. Cardiomegaly. 3. Old calcified granulomatous nodes within the right ambreen and 2 small calcified granuloma at the right lung base. 4. Mildly distended gallbladder. 5. 3.7 x 2.1 cm cystic lesion within the left kidney this is incompletely evaluated. It measures 40 Hounsfield units which is somewhat more than expected. MRI imaging at some point without and with contrast for more definitive assessment of this abnormality is warranted. Maximino Loving MD Cardiovascular: Regular Lungs: Clear Abdomen: Other (RUQ tenderness with palpation ) Extremities: No edema A/P Assessment and Plan 57 year old male with acute cholecystitis -Clear liquids -NPO after MN -Lovenox; place on hold after evening dose for OR tomorrow -Continue holding Plavix/ASA/Eliquis -OR tomorrow for lap genet at 0930 -Consents on chart Attending Statement I personally evaluated the patient and his bedside today. He continues to have some mild right upper quadrant pain to palpation. We again discussed plans for laparoscopic cholecystectomy possible open surgery on 09/01/2017. The procedure in detail again was reviewed as well as the risks of bleeding infection injury to intra-abdominal contents including liver bile duct or bowel possible open surgery DVT pulmonary embolus and expectations for recovery. He understood and was planning to proceed. We will stop his Lovenox today. Plan will be to re-restart his Eliquis 2 days postoperatively. He understood and was thankful for our care. The exam, history, and the medical decision-making described in the above note were completed with the assistance of the mid-level provider. I reviewed and agree with the findings presented. I attest that I had a [id number] encounter with the patient on the same day, and personally performed and documented my assessment and findings in the medical record. Rupinder Jara/[employer] WHITLOCKP Aug 31, 2017 14:19 Jeff Sidhu MD Sep 01, 2017 09:08
--- NOTE | 2017-08-31 17:14 | HHI.PR ---
Subjective Remarks 08/31 no complaint except for right upper quadrant pain which is 7 out of 10 prior to take pain medication No nausea or vomiting or fever or chills Plan by surgery to go for lap genet tomorrow morning Objective Vitals Vital Signs Date Time Temp Pulse Resp B/P (MAP) Pulse Ox O2 Delivery O2 Flow Rate FiO2 08/31/17 11:59 98.1 82 16 92/59 (70) 99 08/31/17 09:00 Room Air 08/31/17 08:04 90 08/31/17 08:00 98.5 84 16 94/57 (69) 95 08/31/17 07:48 97.6 85 16 101/57 (72) 98 08/31/17 05:45 98/53 (68) 08/31/17 04:31 97.6 80 14 92/57 (69) 96 08/31/17 04:00 80 08/31/17 00:00 Room Air 08/31/17 00:00 99 08/31/17 00:00 98.6 89 18 110/59 (76) 93 08/30/17 20:00 98.2 91 20 96/59 (71) 96 08/30/17 20:00 90 I/O 08/30/17 08/30/17 08/30/17 08/31/17 08/31/17 08/31/17 07:00 15:00 23:00 07:00 15:00 23:00 Intake Total 300 ml 1000 ml 325 ml 100 ml Output Total 200 ml Balance -200 ml 300 ml 1000 ml 325 ml 100 ml Intake Oral 1000 ml IV Total 300 ml 325 ml 100 ml Output Urine Total 200 ml # Voids 3 # Bowel Movements 0 Result Diagram: 08/29/17 0545 08/29/17 0545 Objective Remarks GENERAL: This is a well-nourished, well-developed patient, in no apparent distress. SKIN: No rashes, warm and dry HEAD: Atraumatic. Normocephalic. EYES: Pupils equal round and reactive. Extraocular motions intact. No scleral icterus. ENT: Nose without bleeding, or drainage, Airway patent. NECK: Trachea midline. Supple CARDIOVASCULAR: Regular rate and rhythm without murmurs, gallops, or rubs. RESPIRATORY: Fair air entry bilaterally. No wheezes, rales, or rhonchi. GASTROINTESTINAL: Abdomen soft, positive RUQ tenderness nondistended. Positive bowel sounds MUSCULOSKELETAL: Extremities without clubbing, cyanosis, or edema. Pedal pulses appreciated NEUROLOGICAL: Awake and alert. Moves all extremity. Normal speech.no focal neurological deficit A/P Problem List: (1) Chest pain ICD Code: R07.9 - Chest pain, unspecified Assessment and Plan This is a 57-year-old male who presents to the emergency department complaining of chest pain and back pain associated with diaphoresis, shortness of breath and nausea Acute cholecystitis. HIDA scan which was abnormal suggestive of acute cholecystitis consulted general surgery planning for lap genet in a.m. 09/01, continue holding Eliquis, asa and plavix. Patient has been cleared for surgery by cardiology see progress notes. hest, CAD status post OR status post stents. CXR image interpreted by me with no acute cardiopulmonary disease. EKG tracing with ventricular pacing. Patient ruled out for OR discussed with cardiology. CTA no evidence of aortic dissection. Lipase within normal limits with mildly abnormal liver function test. Cleared for surgery by cardiology Cardiomyopathy status post AICD last ejection fraction 35% on Entresto, Coreg, Lasix and Aldactone. Compensated continue home medications A. fib status post pacemaker on Coreg and Eliquis (currently on hold will start Lovenox okayed by general surgery). Stable Chronic kidney disease stage II-III. Nonoliguric. Improved after IV hydration. Avoid nephrotoxins Hyperlipidemia, diabetes mellitus with neuropathy, hypertension, obesity, skin cancer, anxiety and depression. Continue outpatient medications as appropriate DVT prophylaxis with SCD and Lovenox Tommy Hedrick MD Aug 31, 2017 17:14
[2017-08-31] MEDS: GABAPENTIN 100 MG CAP PO SCH (20:21)
[2017-09-01] VITALS: BP 95/60; PULSE 80; PULSE 81; RESP 18; TEMP 97.6; O2SAT 94
[2017-09-01] MEDS: metroNIDAZOLE 500 MG INJ 100 ML IV SCH ×3 (03:18→22:50)
[2017-09-01 04:00] VITALS: BP 103/59; PULSE 75; PULSE 80; RESP 20; TEMP 97.7; O2SAT 96
[2017-09-01] MEDS: CIPROFLOXACIN 400 MG PREMIX 200 ML IV SCH ×2 (04:30→17:06)
[2017-09-01 08:00] VITALS: BP 105/68; PULSE 64; PULSE 71; RESP 18; TEMP 98.7; O2SAT 96
[2017-09-01] MEDS: INSULIN ASPART SUPPLEMENTAL SCALE SQ SCH ×4 (08:00→22:58)
[2017-09-01] MEDS: CARVEDILOL 12.5 MG TAB PO SCH ×2 (08:03→22:53)
[2017-09-01] MEDS: SACUBITRIL/VALSARTAN 24 MG-26 MG TAB PO SCH ×2 (08:03→22:54)
[2017-09-01] MEDS: FUROSEMIDE 40 MG TAB PO SCH ×2 (08:03→22:55)
[2017-09-01] MEDS: PANTOPRAZOLE SOD 40 MG DELAYED RELEASE TAB PO SCH (08:04)
[2017-09-01] MEDS: DOCUSATE SODIUM 50 MG/SENNA 8.6 MG TAB PO SCH ×2 (08:04→22:53)
[2017-09-01] MEDS: INSULIN DETEMIR 100 UNITS/ML VIAL SQ SCH (08:04)
[2017-09-01] MEDS: SPIRONOLACTONE 25 MG TAB PO SCH ×4 (08:04→17:06)
[2017-09-01] MEDS: BUDESONIDE-FORMOTEROL 160/4.5 MCG INHALER INH SCH ×2 (08:05→22:55)
[2017-09-01 09:00] LABS: BICARBONATE 27.2 MEQ/L (21.0-32.0); CALCIUM 8.4 MG/DL (8.5-10.1); CREATININE 1.53 MG/DL (0.60-1.30)
[2017-09-01] MEDS ORDERED: BUPIVACAINE/EPINEPHRINE 0.25% 50 ML VIAL ONE (09:31)
[2017-09-01] MEDS ORDERED: ACETAMINOPHEN 1000 MG/100 ML 100 ML IV ONE (09:38)
[2017-09-01] MEDS ORDERED: SUGAMMADEX SODIUM 200 MG/2 ML VIAL IV PUSH ONE (09:50)
[2017-09-01] MEDS ORDERED: DEXAMETHASONE SOD PHOS 4 MG/ML VIAL IV ONE (12:00)
[2017-09-01] MEDS ORDERED: ROCURONIUM INJ 50 MG/5 ML SYRINGE IV PUSH ONE (12:00)
[2017-09-01] MEDS ORDERED: PROPOFOL 200 MG/20 ML AMP IV ONE (12:00)
[2017-09-01] MEDS ORDERED: PHENYLEPH/NS 1000 MCG/10 ML SYR IV ONE (12:00)
[2017-09-01] MEDS: SODIUM CHLOR 0.9% 1000 ML INJ 1,000 ML IV SCH (12:00)
[2017-09-01] MEDS ORDERED: PHENYLEPHRINE HCL 10 MG/ML VIAL IV ONE (12:00)
[2017-09-01] MEDS ORDERED: NORMOSOL R INJ 2,000 ML IV ONE (12:00)
[2017-09-01] MEDS ORDERED: LIDOCAINE HCL 1% PF 5 ML SYRINGE OTHER ONE (12:00)
[2017-09-01] MEDS ORDERED: ONDANSETRON HCL 4 MG/2 ML VIAL IV ONE (12:00)
--- NOTE | 2017-09-01 12:45 | PD.OP ---
Operative Report Date of Surgery: Sep 01, 2017 Preoperative Diagnosis: Acute cholecystitis Postoperative Diagnosis: Severe acute calculus cholecystitis Procedure: Laparoscopic cholecystectomy Anesthesia: General Surgeon: Jeff Sidhu Vocational Ed Instructor(s): Guillermo Operation and Findings: Patient was identified as Jeff Shah taken to the operating room and placed in a supine position. Sequential compression devices were placed on bilateral lower extremities. Following induction of adequate general tracheal anesthesia the patient's abdomen was prepped and draped in usual sterile fashion with Betadine. A timeout procedure was performed. Following completion of timeout procedure everyone's satisfaction within the room local anesthetic was infiltrated the proposed incision sites. A transverse incision about 4 cm in length horizontally oriented about 6-8 cm above the umbilicus and slightly to the right of midline was made with scalpel. Dissection continued posteriorly through generous subcutaneous fatty tissue layer using appendiceal retractors which allowed application of the anterior fascia. This was incised in a transverse direction the underlying muscle was split and spread with a Estee clamp. Posterior fascia and peritoneum were identified. The posterior fascia was carefully incised in a transverse direction and the peritoneum was entered with the surgeon's finger. The applied medical balloon was sewn trocar was placed in the peritoneal cavity its balloon inflated and CO2 insufflation to level 50 mmHg ensued. The patient was placed in a steep reverse Trendelenburg position turn to the left. 3 upper abdominal 5 mm trochars were placed in the peritoneal cavity under direct laparoscopic view after incision and skin with a scalpel. The omentum was relieved from the underlying the distended gallbladder. It was taut and unable to be grasped. It was therefore decompressed using the harmonic scalpel and suction irrigation device. No stones were spilled. Junction between the gallbladder and the liver was very difficult to find but ultimately we found using the harmonic scalpel the gallbladder was removed from the gallbladder fossa and a dome down technique. This is very meticulous dissection there was a fair a blood clots were suctioned out. There was a moderate amount of bloody oozing due to the severe cholecystitis. Suction irrigation with dissection was also used to facilitate staying within the correct plane between the gallbladder and the liver. This gallbladder was huge. It is by far the largest gallbladder bed removed in my 22 year career. The base of the gallbladder was identified and with careful dissection the cystic artery and cystic duct were isolated from surrounding tissues. At its junction with the gallbladder the cystic artery was divided with the harmonic scalpel. The cystic duct was isolated from surrounding tissues and ligated about 3 cm away from the gallbladder using an 0 PDS Endoloop. The cystic duct at its junction with the gallbladder was divided with a harmonic scalpel. The gallbladder was then placed into an Endo retrieval bag. The normal Endo retrieval bag was too small to accommodate this gallbladder. Then to retrieve her to bag typically used on the spleen or kidney was required to accommodate this huge gallbladder. It was then removed from the camera port incision site which had to be extended at fascial levels. Small amount of the muscle was divided with a harmonic scalpel. The skin incision was increased in size. Using a combination of the bag and a sponge stick without a sponge on the inside on the gallbladder was able to be retrieved from the peritoneal cavity. Photographs were taken on the back table this huge gallbladder. The gallbladder was passed off field for pathologic evaluation. Right upper quadrant was examined and there was excellent hemostasis and no bilious drainage. Right upper quadrant was copiously irrigated with saline. All bloody drainage and blood clot was suctioned out and removed from the right upper quadrant. Due to the amount of oozing during the surgery 1 g of Cecilia absorbable hemostatic agent was placed in the gallbladder fossa. The cystic duct ligature remained intact. The cystic arterial stump was hemostatic. Trochars were removed under direct visualization there was no evidence of bleeding from trocar sites. The abdomen was actively desufflated through the camera port incision site. The posterior fascia and peritoneum were closed with multiple 0 Vicryl sutures. Irrigation ensued at each port site. The anterior fascia was closed with running 0 Vicryl suture. The skin incisions were approximated with 4-0 Monocryl subcuticular sutures. Dressings were applied with Mastisol half- inch brown Steri-Strips. The largest incision was covered with 4 x 4 and Tegaderm. The patient tolerated the procedure without apparent complication. Sponge needle and instrument counts were correct at the end of the case. Patient was transported to the PACU in stable condition. Estimated blood loss 500 mL Jeff Sidhu MD Sep 01, 2017 12:44
[2017-09-01] MEDS ORDERED: NORC5TAB PO (12:51)
[2017-09-01] MEDS ORDERED: ONDANSETRON HCL 4 MG/2 ML VIAL IV PUSH PRN (13:00)
[2017-09-01] MEDS ORDERED: Post-op Orders (for Pharmacy) XX ONE (13:00)
[2017-09-01] MEDS ORDERED: MORPHINE SULFATE 8 MG/ML INJ IV PUSH PRN (13:00)
[2017-09-01] MEDS: LACTATED RINGER'S 1000 ML INJ 1,000 ML IV SCH ×2 (13:00→22:46)
[2017-09-01] MEDS ORDERED: *morphine SULFATE 4 MG/ML PERIprocedure ONLY ONE ×2 (13:01→13:28)
[2017-09-01 14:13] VITALS: O2SAT 93
[2017-09-01] MEDS: ACETAMINOPHEN/HYDROcodone 325 MG/5 MG TAB PO PRN ×2 (14:48→19:49)
[2017-09-01 16:00] VITALS: BP 118/63; PULSE 80; PULSE 83; RESP 19; TEMP 97.9; O2SAT 96
--- NOTE | 2017-09-01 18:40 | HHI.PR ---
Subjective Remarks Resting in bed, had lap genet earlier today Soreness in the insertion site No fever or chills Creatinine increased from 1.16-1.56 Objective Vitals Vital Signs Date Time Temp Pulse Resp B/P (MAP) Pulse Ox O2 Delivery O2 Flow Rate FiO2 09/01/17 16:00 80 09/01/17 16:00 97.9 83 19 118/63 (81) 96 09/01/17 14:13 93 09/01/17 13:45 80 16 99/64 (76) 94 Nasal Cannula 2 09/01/17 13:30 80 16 101/63 (76) 93 Nasal Cannula 2 09/01/17 13:15 80 16 98/61 (73) 94 Nasal Cannula 2 09/01/17 13:00 80 16 101/56 (71) 92 Nasal Cannula 2 09/01/17 12:45 82 16 113/57 (75) 92 Nasal Cannula 2 09/01/17 12:41 98.8 80 16 106/64 (78) 92 Nasal Cannula 2 09/01/17 08:00 71 09/01/17 08:00 Room Air 09/01/17 08:00 98.7 64 18 105/68 (80) 96 09/01/17 04:00 97.7 75 20 103/59 (74) 96 09/01/17 04:00 80 09/01/17 00:00 97.6 81 18 95/60 (72) 94 09/01/17 00:00 80 08/31/17 21:10 Room Air 08/31/17 21:00 80 08/31/17 20:00 98.4 92 20 123/64 (83) 98 08/31/17 18:58 90 I/O 08/31/17 08/31/17 08/31/17 09/01/17 09/01/17 09/01/17 07:00 15:00 23:00 07:00 15:00 23:00 Intake Total 325 ml 100 ml 960 ml 420 ml 1520 ml Output Total 1200 ml 500 ml Balance 325 ml 100 ml -240 ml 420 ml 1020 ml Intake Oral 960 ml 120 ml IV Total 325 ml 100 ml 300 ml 20 ml Other 1500 ml Output Urine Total 1200 ml Estimated Blood Loss 500 ml # Voids 3 # Bowel Movements 0 0 Result Diagram: 08/29/17 0545 09/01/17 0708 Objective Remarks GENERAL: This is a well-nourished, well-developed patient, in no apparent distress. SKIN: No rashes, warm and dry HEAD: Atraumatic. Normocephalic. EYES: Pupils equal round and reactive. Extraocular motions intact. No scleral icterus. ENT: Nose without bleeding, or drainage, Airway patent. NECK: Trachea midline. Supple CARDIOVASCULAR: Regular rate and rhythm without murmurs, gallops, or rubs. RESPIRATORY: Fair air entry bilaterally. No wheezes, rales, or rhonchi. GASTROINTESTINAL: Abdomen soft, positive RUQ tenderness nondistended. Positive bowel sounds MUSCULOSKELETAL: Extremities without clubbing, cyanosis, or edema. Pedal pulses appreciated NEUROLOGICAL: Awake and alert. Moves all extremity. Normal speech.no focal neurological deficit A/P Problem List: (1) Chest pain ICD Code: R07.9 - Chest pain, unspecified Assessment and Plan This is a 57-year-old male who presents to the emergency department complaining of chest pain and back pain associated with diaphoresis, shortness of breath and nausea Acute cholecystitis. HIDA scan which was abnormal suggestive of acute cholecystitis consulted general surgery status post lap genet on 09/01, resume Eliquis, asa and plavix when okay with surgery. Patient has been cleared for surgery by cardiology see progress notes. hest, CAD status post NH status post stents. CXR image interpreted by me with no acute cardiopulmonary disease. EKG tracing with ventricular pacing. Patient ruled out for NH discussed with cardiology. CTA no evidence of aortic dissection. Lipase within normal limits with mildly abnormal liver function test. Cleared for surgery by cardiology Cardiomyopathy status post AICD last ejection fraction 35% on Entresto, Coreg, Lasix and Aldactone. Compensated continue home medications A. fib status post pacemaker on Coreg and Eliquis (currently on hold will start Lovenox okayed by general surgery). Stable ADAM on chronic kidney disease stage II-III. Nonoliguric. Improved after IV hydration. Avoid nephrotoxins Hyperlipidemia, diabetes mellitus with neuropathy, hypertension, obesity, skin cancer, anxiety and depression. Continue outpatient medications as appropriate DVT prophylaxis with SCD and Lovenox 09/01: Status post lap genet today, creatinine increased to 1.56, will give IV fluid and monitor BMP Tommy Hedrick MD Sep 01, 2017 18:40
[2017-09-01 18:48] LABS: AUTOMATED NEUTROPHIL # 5.5 TH/MM3 (1.8-7.7); BASOPHIL % 0.2 % (0.0-2.0); EOSINOPHIL % 0.1 % (0.0-4.0); HEMATOCRIT 35.3 % (39.0-51.0); HEMOGLOBIN 11.9 GM/DL (13.0-17.0); LYMPH % 11.5 % (9.0-44.0); LYMPHOCYTE # 0.8 TH/MM3 (1.0-4.8); MEAN CELL VOLUME 99.6 FL (80.0-100.0); MEAN CORPUSCULAR HEMOGLOBIN 33.6 PG (27.0-34.0); MEAN CORPUSCULAR HGB CONC 33.7 % (32.0-36.0); MEAN PLATELET VOLUME 9.5 FL (7.0-11.0); MONO % 4.8 % (0.0-8.0); MONOCYTE # 0.3 TH/MM3 (0-0.9); NEUT % 83.4 % (16.0-70.0); PLATELET COUNT 202 TH/MM3 (150-450); RED BLOOD COUNT 3.54 MIL/MM3 (4.50-5.90); RED CELL DISTRIBUTION WIDTH 13.4 % (11.6-17.2); WHITE BLOOD COUNT 6.6 TH/MM3 (4.0-11.0)
[2017-09-01 20:00] VITALS: BP 125/80; PULSE 84; PULSE 85; RESP 20; TEMP 97.4; O2SAT 98
[2017-09-01] MEDS: GABAPENTIN 100 MG CAP PO SCH (22:55)
[2017-09-02] VITALS: BP 112/64; PULSE 77; RESP 19; TEMP 98.2; O2SAT 95
[2017-09-02] MEDS: SODIUM CHLOR 0.9% 1000 ML INJ 1,000 ML IV SCH (01:13)
[2017-09-02] MEDS: ACETAMINOPHEN/HYDROcodone 325 MG/5 MG TAB PO PRN ×2 (03:25→09:27)
[2017-09-02] MEDS: metroNIDAZOLE 500 MG INJ 100 ML IV SCH ×2 (03:25→12:15)
[2017-09-02 04:00] VITALS: BP 93/59; PULSE 78; PULSE 80; RESP 20; TEMP 97.6; O2SAT 94
[2017-09-02] MEDS: CIPROFLOXACIN 400 MG PREMIX 200 ML IV SCH (05:24)
[2017-09-02 08:00] VITALS: BP 109/66; PULSE 80; RESP 20; TEMP 97.5; O2SAT 92
[2017-09-02] MEDS: CARVEDILOL 12.5 MG TAB PO SCH (09:00)
[2017-09-02] MEDS: INSULIN ASPART SUPPLEMENTAL SCALE SQ SCH ×2 (09:24→12:00)
[2017-09-02] MEDS: SPIRONOLACTONE 25 MG TAB PO SCH ×2 (09:24→12:14)
[2017-09-02] MEDS: PANTOPRAZOLE SOD 40 MG DELAYED RELEASE TAB PO SCH (09:24)
[2017-09-02] MEDS: FUROSEMIDE 40 MG TAB PO SCH (09:24)
[2017-09-02] MEDS: DOCUSATE SODIUM 50 MG/SENNA 8.6 MG TAB PO SCH (09:24)
[2017-09-02] MEDS: SACUBITRIL/VALSARTAN 24 MG-26 MG TAB PO SCH (09:24)
[2017-09-02] MEDS: INSULIN DETEMIR 100 UNITS/ML VIAL SQ SCH (09:28)
[2017-09-02] MEDS: BUDESONIDE-FORMOTEROL 160/4.5 MCG INHALER INH SCH (09:28)
[2017-09-02 10:13] VITALS: O2SAT 95
[2017-09-02 11:36] LABS: AUTOMATED NEUTROPHIL # 9.1 TH/MM3 (1.8-7.7); BASOPHIL % 0.2 % (0.0-2.0); EOSINOPHIL % 0.1 % (0.0-4.0); HEMATOCRIT 32.9 % (39.0-51.0); HEMOGLOBIN 11.1 GM/DL (13.0-17.0); LYMPH % 10.5 % (9.0-44.0); LYMPHOCYTE # 1.2 TH/MM3 (1.0-4.8); MEAN CELL VOLUME 98.7 FL (80.0-100.0); MEAN CORPUSCULAR HEMOGLOBIN 33.3 PG (27.0-34.0); MEAN CORPUSCULAR HGB CONC 33.8 % (32.0-36.0); MEAN PLATELET VOLUME 9.4 FL (7.0-11.0); NEUT % 80.2 % (16.0-70.0); PLATELET COUNT 214 TH/MM3 (150-450); RED BLOOD COUNT 3.33 MIL/MM3 (4.50-5.90); RED CELL DISTRIBUTION WIDTH 13.2 % (11.6-17.2); WHITE BLOOD COUNT 11.3 TH/MM3 (4.0-11.0)
[2017-09-02 11:53] LABS: ALBUMIN 2.5 GM/DL (3.4-5.0); BICARBONATE 27.5 MEQ/L (21.0-32.0); CALCIUM 8.1 MG/DL (8.5-10.1); CREATININE 1.32 MG/DL (0.60-1.30); DIRECT BILIRUBIN ADULT 0.3 MG/DL (0.0-0.2); MAGNESIUM 2.1 MG/DL (1.5-2.5); PHOSPHORUS 2.4 MG/DL (2.5-4.9)
[2017-09-02 11:55] LABS: INDIRECT BILIRUBIN 0.3 MG/DL (0.0-0.8); TOTAL BILIRUBIN ADULT 0.6 MG/DL (0.2-1.0); TOTAL PROTEIN 6.7 GM/DL (6.4-8.2)
[2017-09-02 12:00] VITALS: BP 101/68; PULSE 79; RESP 20; TEMP 97.3; O2SAT 93
--- NOTE | 2017-09-02 14:19 | HHI.DS ---
Discharge Summary Admission Date Aug 28, 2017 at 14:22 Discharge Date: Sep 02, 2017 Admitting Diagnosis Chest Pain (1) Chest pain ICD Code: R07.9 - Chest pain, unspecified Procedures lap genet Brief History - From Admission This is a 57-year-old male who presents to the emergency department complaining of chest pain. Started last night after having a big dinner for [employer] when he developed sharp pain between the shoulder blades. He took Tylenol and then went to bed but had difficulty sleeping because of pain and shortness of breath. He also had upper abdominal pain. This morning he complained of severe pressure/burning chest discomfort without radiation associated with diaphoresis , shortness of breath and nausea prompting him to present to the emergency department because his symptoms are similar when he had AK in the past. Denies palpitations, dizziness, fever, chills and URI symptoms. His abdominal pain has resolved but continues to have back and chest pain. Sublingual nitroglycerin provided temporary relief. Patient history of CAD and has received 4 stents last one in 2010 to LAD. He also has cardiomyopathy status post AICD last ejection fraction 35% on Entresto, Coreg, Lasix and Aldactone, A. fib status post pacemaker on Coreg and Eliquis, chronic kidney disease stage II-III, hyperlipidemia, diabetes mellitus, hypertension, obesity, skin cancer, anxiety and depression. All other systems reviewed negative. Discussed with ER MD, awaiting return call from patient's cdl service technician and obtain CTA to rule out aortic dissection. We will also check lipase CBC/BMP: 09/02/17 1054 09/02/17 1054 Significant Findings Laboratory Tests Test 09/01/17 07:08 09/01/17 18:13 09/02/17 10:54 Blood Urea Nitrogen 27 MG/DL (-) 29 MG/DL (7-18) Creatinine 1.53 MG/DL (0.60-1.30) 1.32 MG/DL (0.60-1.30) Calcium Level 8.4 MG/DL (8.5-10.1) 8.1 MG/DL (8.5-10.1) Sodium Level 135 MEQ/L (136-145) Estimat Glomerular Filtration Rate 47 ML/MIN (>89) 56 ML/MIN (>89) Red Blood Count 3.54 MIL/MM3 (4.50-5.90) 3.33 MIL/MM3 (4.50-5.90) Hemoglobin 11.9 GM/DL (13.0-17.0) 11.1 GM/DL (13.0-17.0) Hematocrit 35.3 % (39.0-51.0) 32.9 % (39.0-51.0) Neutrophils (%) (Auto) 83.4 % (16.0-70.0) 80.2 % (16.0-70.0) Lymphocytes # (Auto) 0.8 TH/MM3 (1.0-4.8) White Blood Count 11.3 TH/MM3 (4.0-11.0) Monocytes (%) (Auto) 9.0 % (0.0-8.0) Neutrophils # (Auto) 9.1 TH/MM3 (1.8-7.7) Monocytes # (Auto) 1.0 TH/MM3 (0-0.9) Random Glucose 138 MG/DL (74-106) Albumin 2.5 GM/DL (3.4-5.0) Phosphorus Level 2.4 MG/DL (2.5-4.9) Direct Bilirubin 0.3 MG/DL (0.0-0.2) PE at Discharge GENERAL: This is a well-nourished, well-developed patient, in no apparent distress. SKIN: No rashes, warm and dry HEAD: Atraumatic. Normocephalic. EYES: Pupils equal round and reactive. Extraocular motions intact. No scleral icterus. ENT: Nose without bleeding, or drainage, Airway patent. NECK: Trachea midline. Supple CARDIOVASCULAR: Regular rate and rhythm without murmurs, gallops, or rubs. RESPIRATORY: Fair air entry bilaterally. No wheezes, rales, or rhonchi. GASTROINTESTINAL: Abdomen soft, positive RUQ tenderness nondistended. Positive bowel sounds MUSCULOSKELETAL: Extremities without clubbing, cyanosis, or edema. Pedal pulses appreciated NEUROLOGICAL: Awake and alert. Moves all extremity. Normal speech.no focal neurological deficit Hospital Course 57 years old male admitted with acute cholecystitis surgery consulted patient had lap genet after cardiology consult for clearance, he had a level of ADAM which improved with IV fluid, patient cleared by surgery to be discharged today to follow-up with them as an outpatient Pt Condition on Discharge: Good Discharge Disposition: Discharge Home Discharge Time: <= 30 minutes Discharge Instructions DIET: Follow Instructions for: Low Fat Diet Activities you can perform: Weight Bearing as Alis Follow up Referrals: Surgical - 2 Weeks with Jeff Sidhu MD New Medications: Hydrocodone-Acetaminophen ([place]) 5 Mg-325 Mg Tab 1 TAB PO Q4H PRN for PAIN, #20 TAB 0 Refills Tommy Hedrick MD Sep 02, 2017 14:19
== END 2017-09-02 13:58 | disposition home or self-care (01) | DRG 418 ==
LOC: NEPC 10:14 → NEDA 12:19 → OBSVTOIN 14:22 → N04A 17:25 → UNDODISIN 08-29 18:00
PROVIDERS: ADMIT Hospitalist; ATTEND Hospitalist
PROC: 0FT44ZZ Resection of Gallbladder, Percutaneous Endoscopic Approach (ICD-10-PCS; principal; 2017-09-01 09:59)
DX: K80.00 Calculus of gallbladder with acute cholecystitis without obstruction (principal); I13.0 Hypertensive heart and chronic kidney disease with heart failure and stage 1 through stage 4 chronic kidney disease, or unspecified chronic kidney disease; E11.22 Type 2 diabetes mellitus with diabetic chronic kidney disease; N17.9 Acute kidney failure, unspecified; I50.22 Chronic systolic (congestive) heart failure; I48.1 Persistent atrial fibrillation; E11.40 Type 2 diabetes mellitus with diabetic neuropathy, unspecified; N18.3 Chronic kidney disease, stage 3 (moderate); Z68.41 Body mass index [BMI] 40.0-44.9, adult; I25.5 Ischemic cardiomyopathy; I25.10 Atherosclerotic heart disease of native coronary artery without angina pectoris; F12.90 Cannabis use, unspecified, uncomplicated; I25.2 Old myocardial infarction; Z95.810 Presence of automatic (implantable) cardiac defibrillator; B19.20 Unspecified viral hepatitis C without hepatic coma; E78.5 Hyperlipidemia, unspecified; F41.9 Anxiety disorder, unspecified; F32.9 Major depressive disorder, single episode, unspecified; Z79.01 Long term (current) use of anticoagulants; Z85.828 Personal history of other malignant neoplasm of skin; E66.01 Morbid (severe) obesity due to excess calories; Z95.5 Presence of coronary angioplasty implant and graft; Z82.49 Family history of ischemic heart disease and other diseases of the circulatory system
CPT/HCPCS: 71045; 71275; 74174; 78226; 80048; 80076; 82550; 82552; 82948; 83690; 83735; 84100; 84484; 85025; 88304; 93005; 99285; A9537; J0131; J0744; J1100; J1650; J1815; J2270; J2370; J2405; J3010; J7030; J7120; Q9967